=== PATIENT | female | born 1975 | race Caucasian/White ===

== ENCOUNTER → 2018-03-31 13:41 | Outpatient (REF) | payer SELFPAY | LOC: OM 13:41 | PROVIDERS: PCP Family Medicine; Visit Provider Nurse Practitioner Family | DX: Z02.83 Encounter for blood-alcohol and blood-drug test (principal) ==

== ENCOUNTER 2018-06-30 14:11 | Outpatient (CLI) | payer MEDICAID, SELFPAY ==
[2018-06-30 15:28] LABS: HCT 42.1 % (36.0-46.0); HGB 13.3 g/dL (12.0-15.5)
[2018-06-30 15:58] LABS: HCG Quant, Pregnancy < 1 mIU/mL (1-3)
== END 2018-06-30 14:31 ==
PROVIDERS: PCP Family Medicine; Visit Provider Obstetrics & Gynecology
DX: N83.292 Other ovarian cyst, left side (principal); Z01.818 Encounter for other preprocedural examination
CPT/HCPCS: 36415; 86850; 86900; 86901; 84702; 85014; 85018

== ENCOUNTER 2018-07-03 11:26 | Day surgery (SDC) | payer MEDICAID, SELFPAY ==
[2018-07-03] VITALS (8 sets, daily range): BP systolic 90–113; BP diastolic 57–75; PULSE 60–74; RESP 14–24; TEMP 36.5–37; O2SAT 94–100
[2018-07-03] MEDS: Lactated Ringers 1,000 ML 125 ML IV ×2 (12:09→14:05)
--- NOTE | 2018-07-03 12:29 | W.PM.HP.N ---
Assessment and Plan (1) Sterilization: Current visit: Yes Status: Acute (2) Sterilization: Current visit: Yes Status: Acute 42 yo left complex ovarian cyst, desires sterilization, needs Mirena IUD removed and new one inserted PlanLAparoscopic LEFT ovarian cystectomy, Left salpingectomy, Mirena iud removal and reinsertion new mIRENA iud r/b/a REVIEWED ALL QUESTIONS ASKED AND ANSWERED CONSENTS SIGNED History of Present Illness Chief Complaint: left ovarian cyst, desires sterilization, iud insertion Narrative: 42 yo hx ectopic with right salpingectomy. 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 Smoking/Tobacco Use Status: Former Tobacco Use second hand exposure: No alcohol intake: current details: occasional substance use type: does not use seatbelt use: always Surgical History Cholecystectomy , Ectopic Female Reproductive History Menstrual control method: progestin IUCD History History 4 Para 3 Hx # Term Pregnancies Multiple births Hx # Pregnancies Ectopic pregnancies AB induced Hx Number of Living Children AB spontaneous Meds Home Medications Medication Instructions Recorded Confirmed Type levonorgestrel [Mirena] 1 ea INTRAUTERINE ONCE #1 implant 07/08/14 07/03/18 History famotidine 20 mg PO BID PRN PRN 09/21/14 07/03/18 History Allergies Allergy/AdvReac Type Severity Reaction Status Date / Time acetaminophen [From Percocet] AdvReac Mild Nausea Unverified 07/03/18 11:51 oxycodone [From Percocet] AdvReac Mild Nausea Unverified 07/03/18 11:51 Exam Const General: cooperative, healthy appearing and comfortable Chest Chest: normal inspection of the chest Resp Effort & Inspection: normal respiratory effort Auscultation: clear to auscultation bilaterally Cardio Rate: regular rate Rhythm: regular rhythm Heart Sounds: S1 normal and S2 normal GI Inspection: normal to inspection Palpation: soft and no hepatosplenomegaly External Female Exam: external appearance normal and normal appearance of the urethra Speculum Exam - Vagina: normal appearance of the vagina Speculum Exam - Cervix: normal appearance of the cervix Bimanual Exam- Vagina & Uterus: normal bimanual exam Bimanual Exam- Adnexa, other: normal adnexae Results Labs Laboratory Results - last 24 hr 07/03/18 11:50 Patient ABO/Rh A Negative Last Vital Signs Temp 36.5 C 07/03/18 11:40 Pulse 66 07/03/18 11:40 Resp 16 07/03/18 11:40 BP 113/75 07/03/18 11:40 Pulse Ox 100 07/03/18 11:40 pelvic us left solid complex ovarian cyst
--- NOTE | 2018-07-03 14:20 | FALL_PTH ---
PATIENT: Valarie Mendes LOC: [facility] U#:[id number] AGE/SX: 42/F ROOM: RE07/03/[address]: Shana Baird MD : [id number] BED: DIS: 07/03/2018 SPEC #: [id number] RECD: 07/03/18 17:24 STATUS: SANCHO RE #: [id number] SHAMAR: 07/03/18 14:[address]: Shana Baird DEPT: Surgical Specimen RECD BY: Blessing Londono ENTERED: 07/03/18 17:27 SP TYPE: Fall OTHR DR: Patel Toney Tissues: 1 - FALLOPIAN TUBE (STERILIZATION) 2 - OVARY BIOPSY 3 - FOREIGN BODY Procedures: GROSS AND MICRO LEVEL 2 GROSS AND MICRO LEVEL 4 GROSS LEVEL 1 Comments: [id number]
[2018-07-03] MEDS: Bupivacaine 0.25% Pres-Free 30 ML VIAL (14:38)
--- NOTE | 2018-07-03 15:29 | W.PM.OP ---
Date of service: 07/03/18 Time of Service: 15:29 Operative Note DATE OF PROCEDURE: 07/03/18 PRE-OP DIAGNOSIS: Complex Left Ovarian cyst, desires sterilization IUD removal/reinsertion POST-OP DIAGNOSIS: same PROCEDURE: Laparoscopic left ovarian cystectomy, left salpingectomy Mirena removal/new IUD. The patient was taken to the operating room and properly identified she was then placed on the operating table in the dorsal supine position and general anesthesia was induced without difficulty. She was then placed in the dorsal lithotomy position and prepped and draped in normal sterile fashion. A formal timeout procedure was then performed confirming patient and procedure with ulcer surgical personnel present. A Branch catheter was then placed a bivalve speculum was placed in the vagina the cervix was visualized and grasped on the anterior lip with a single-tooth tenaculum. The IUD strings were grasped with a ring forcep sac and the IUD removed the uterus was then sounded to 7.5 cm and the new Mirena IUD was inserted into the uterus without difficulty and the strings were cut. The uterine manipulator was then placed in a single-tooth tenaculum removed. Hemostasis was noted. Attention was then turned to the patient's abdomen where a infraumbilical injection of quarter strength Marcaine was made 5 mm subcuticular incision was made and the Veress needle was advanced into the peritoneal cavity without difficulty and intraperitoneal location was confirmed with a drop in pressure and a fluid-filled syringe. The abdomen was then insufflated of CO2 gas and the laparoscope advanced into the peritoneal cavity and pharynx infection was instituted with the above findings. The patient was placed in Trendelenburg position to 5 mm ports were then placed in the right lower quadrant in the left lower quadrant by first injection of quarter strength Marcaine making a 5 mm subcuticular incision and advancing each port under direct visualization. The pelvis was then reinspected there was a large fluid-filled cyst on the left ovary the right ovary was normal bladder ureters appendix and liver were also normal. Attention was then turned to the salpingectomy portion of the procedure the left fallopian tube was then grasped and cauterized along the mesosalpinx and cut hemostasis was confirmed. The right fallopian tube had already been removed at the time of her prior ectopic . Attention was then turned to the cystectomy portion of the procedure the ovary was grasped and while well away from the bladder a linear incision was made in the ovarian capsule the cyst was drained of clear fluid the linear incision was extended each side of the incision was then grasped and then using the grasper with teeth the entire ovarian cyst wall was excised including approximately 2-3 mm solid component most consistent with calcified tissue. The specimens were sent to pathology for permanent evaluation this included the left ovarian cyst wall and the left fallopian tube. The pelvis was irrigated all the irrigant was removed the left ovary was reinspected and found to be hemostatic as well as the left adnexa which was hemostatic 2. Although equipment was removed from the peritoneum the abdomen was desufflated of CO2 gas the ports were removed and the skin closed with 4-0 Monocryl in a subcuticular fashion. A Branch catheter was removed as well as the uterine manipulator. Sponge lap needle and instrument count correct x2 and the patient was taken recovery room in stable condition. ANESTHESIA: GETA ESTIMATED BLOOD LOSS: 25 PATHOLOGY: other (left fallopian tube, left ovarian cyst wall, Mirena IUD) Patient was transported to: PACU Patient's condition: stable Implants: Mirena IUD
[2018-07-03] MEDS: HYDROcodone 5/Acetaminophen 325 TAB PO (17:42)
== END 2018-07-03 17:40 | disposition home or self-care (01) ==
PROVIDERS: PCP Family Medicine; Visit Provider Obstetrics & Gynecology
PROC: (CPT 58662; principal; 2018-07-03 13:00)
PROC: (CPT 58661; 2018-07-03 13:00)
PROC: (CPT 58300; 2018-07-03 13:00)
DX: D27.1 Benign neoplasm of left ovary (principal); Z30.433 Encounter for removal and reinsertion of intrauterine contraceptive device; Z90.79 Acquired absence of other genital organ(s)
CPT/HCPCS: 58300; 58301; 58661; 58662; 86850; 86900; 86901; 88300; 88305; NC; 88302; J0131; J1100; J1885; J2250; J2405; J3010

== ENCOUNTER 2018-09-01 10:07 | Emergency (ER) | payer MEDICAID, SELFPAY ==
[2018-09-01 10:16] VITALS: BP 118/68; PULSE 76; RESP 16; TEMP 37; O2SAT 98
--- NOTE | 2018-09-01 10:30 | W.ED.GENAD ---
Discharge Plan Disposition Patient Disposition: LEFT WITHOUT BEING SEEN Discharge Details Chief Complaint: Sorethroat Primary Care Provider: Patel Toney ED Provider: Shana Castillo Discharge Data Discharge Date/Time-TO BE ENTERED AT DEPARTURE: 09/01/18 11:02 HPI General Date/Time Provider Initiated Documentation: 09/01/18 10:30. HPI Narrative: Per nursing after triage, Pt here with sore throat and strep throat contacts, concern for strep throat. Pt arrived in ED during surge conditions. Rapid strep ordered prior to my seeing the Pt. Rapid strep resulted as negative. Pt apparently eloped from the emergency department after being told by nursing rapid strep negative before being seen by me. Related Data Home Medications Medication Instructions Recorded Confirmed Mirena 1 ea INTRAUTERINE ONCE #1 implant 07/08/14 09/01/18 famotidine 20 mg PO BID PRN PRN 09/21/14 09/01/18 ibuprofen 800 mg PO TID PRN #30 tab 07/03/18 09/01/18 Previous Rx's Medication Instructions Recorded ibuprofen 800 mg PO TID PRN #30 tab 07/03/18 Allergies Allergy/AdvReac Type Severity Reaction Status Date / Time acetaminophen [From Percocet] AdvReac Mild Nausea Unverified 09/01/18 10:18 oxycodone [From Percocet] AdvReac Mild Nausea Unverified 09/01/18 10:18 General Stated Complaint: Sorethroat JUSTIN: 4 PFSH Social History adopted: No caregiver/support person: No foster care: No household members: family housing: house lives independently: Yes number of children: 3 chcf: No current occupational status: employed 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 [employer] pets and animals: No leisure activities: other Hx Recent Travel: No Smoking/Tobacco Use Status: Former Tobacco Use second hand exposure: No alcohol intake: current details: occasional substance use type: does not use seatbelt use: always Female Reproductive History Menstrual control method: progestin IUCD (07/03/18) History History 4 Para Hx # Term Pregnancies 3 Multiple births Hx # Pregnancies Ectopic pregnancies AB induced Hx Number of Living Children AB spontaneous Course Vital Signs Temperature 37 C 09/01/18 10:16 Pulse 76 09/01/18 10:16 Respiratory Rate 16 09/01/18 10:16 Blood Pressure 118/68 09/01/18 10:16 Pulse Oximetry 98 09/01/18 10:16 Temperature 37 C 09/01/18 10:16 Temperature Source Skin 09/01/18 10:16 Pulse 76 09/01/18 10:16 Respiratory Rate 16 09/01/18 10:16 Respiratory Effort Non-Labored 09/01/18 10:16 Blood Pressure 118/68 09/01/18 10:16 Pulse Oximetry 98 09/01/18 10:16 Oxygen Delivery Method Room Air 09/01/18 10:16 Oxygen Flow Rate 0 09/01/18 10:16 Pain Level 8 09/01/18 10:16
--- NOTE | 2018-09-01 11:04 | NUR.NOTE ---
Nursing Note: 1102 seen walking out by Jen. Sanna Schreiber.
--- NOTE | 2018-09-02 15:41 | ED.GENADUL_ITS ---
Discharge Plan Disposition Patient Disposition: LEFT WITHOUT BEING SEEN Discharge Details Chief Complaint: Sorethroat Primary Care Provider: Patel Toney ED Provider: Shana Castillo Discharge Data Discharge Date/Time-TO BE ENTERED AT DEPARTURE: 09/01/18 11:02 HPI General Date/Time Provider Initiated Documentation: 09/01/18 10:30 . HPI Narrative: Per nursing after triage, Pt here with sore throat and strep throat contacts, concern for strep throat. Pt arrived in ED during surge conditions. Rapid strep ordered prior to my seeing the Pt. Rapid strep resulted as negative. Pt apparently eloped from the emergency department after being told by nursing rapid strep negative before being seen by me. Related Data Home Medications Medication Instructions Recorded Confirmed Mirena 1 ea INTRAUTERINE ONCE #1 implant 07/08/14 09/01/18 famotidine 20 mg PO BID PRN PRN 09/21/14 09/01/18 ibuprofen 800 mg PO TID PRN #30 tab 07/03/18 09/01/18 Previous Rx's Medication Instructions Recorded ibuprofen 800 mg PO TID PRN #30 tab 07/03/18 Allergies Allergy/AdvReac Type Severity Reaction Status Date / Time acetaminophen [From Percocet] AdvReac Mild Nausea Unverified 09/01/18 10:18 oxycodone [From Percocet] AdvReac Mild Nausea Unverified 09/01/18 10:18 General Stated Complaint: Sorethroat JUSTIN: 4 PFSH Social History adopted: No caregiver/support person: No foster care: No household members: family housing: house lives independently: Yes number of children: 3 custodial: No current occupational status: employed 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 pets and animals: No leisure activities: other Hx Recent Travel: No Smoking/Tobacco Use Status: Former Tobacco Use second hand exposure: No alcohol intake: current details: occasional substance use type: does not use seatbelt use: always Female Reproductive History Menstrual control method: progestin IUCD (07/03/18) History History 4 Para Hx # Term Pregnancies 3 Multiple births Hx # Pregnancies Ectopic pregnancies AB induced Hx Number of Living Children AB spontaneous Course Vital Signs Temperature 37 C 09/01/18 10:16 Pulse 76 09/01/18 10:16 Respiratory Rate 16 09/01/18 10:16 Blood Pressure 118/68 09/01/18 10:16 Pulse Oximetry 98 09/01/18 10:16 Temperature 37 C 09/01/18 10:16 Temperature Source Skin 09/01/18 10:16 Pulse 76 09/01/18 10:16 Respiratory Rate 16 09/01/18 10:16 Respiratory Effort Non-Labored 09/01/18 10:16 Blood Pressure 118/68 09/01/18 10:16 Pulse Oximetry 98 09/01/18 10:16 Oxygen Delivery Method Room Air 09/01/18 10:16 Oxygen Flow Rate 0 09/01/18 10:16 Pain Level 8 09/01/18 10:16
== END 2018-09-01 11:02 | disposition left before discharge ==
LOC: ER 10:58
PROVIDERS: Emergency Provider Student in an Organized Health Care Education/Training Program; PCP Family Medicine
DX: Z53.21 Procedure and treatment not carried out due to patient leaving prior to being seen by health care provider (principal)
CPT/HCPCS: 87081

== ENCOUNTER 2018-10-09 11:51 | Emergency (ER) | payer MEDICAID, SELFPAY ==
[2018-10-09 11:58] VITALS: BP 114/72; PULSE 88; RESP 16; TEMP 37; O2SAT 100
--- NOTE | 2018-10-09 11:59 | W.ED.GENAD ---
Discharge Plan Disposition Patient Disposition: HOME Condition: Stable Discharge Details Chief Complaint: RespSymp Clinical Impression: Community acquired pneumonia Primary Care Provider: Patel Toney ED Provider: Eliu Patrick Home Meds and New Rx's Prescriptions: New doxycycline hyclate 100 mg tablet 100 mg PO BID Qty: 14 RF: 0 Continued Mirena 1 EACH intrauterine device 1 ea Intrauterine ONCE Qty: 1 RF: 0 famotidine 20 MG tablet 20 mg PO BID PRN PRNRF: 0 ibuprofen 800 mg tablet 800 mg PO TID PRN (Reason: fever or pain) Qty: 30 RF: 1 Discharge Instructions Instructions: Community Acquired Pneumonia (ED) Additional Instructions: if not better in a week see your primary care provider if you feel you are worsening, having more difficulty breathing or persistent vomit return to the emergency department Medical Decision Making patient comes in with chief complaint of cough for 3 days, subjective fevers and chills. Denies travel, smoking, drug use or alcohol use, is a former smoker but quit years ago. Denies rashes or recent travel. Has left lower lobe crackles otherwise clear lungs, speaking in full setnences without distress. Does have clear rhinorrhea, normal oropharynx, no murmurs or stigmata of endocarditis. Suspect CAP given lung exam findings, given stable vitals and well appearance do not feel labs or imaging indicated. Will start abx, advised f/u with pcp and return precautions given Differential Diagnosis pna, viral illness, bronchitis HPI General Mode of arrival: ambulatory. Date/Time Provider Initiated Documentation: 10/09/18 11:54. Limitations to Documentation: no limitations. Information obtained by: patient. History of Present Illness 43 year old F presents to the emergency department with the chief complaint of cough, described as moderate, with intensity rated at 4. Patient started experiencing this day(s) (3) and it has been constant. No relieving factors improve symptom(s), No exacerbating factors reported . Patient notes fever/chills. Patient did receive the following treatments prior to arrival, none Related Data Home Medications Medication Instructions Recorded Confirmed Mirena 1 ea INTRAUTERINE ONCE #1 implant 07/08/14 10/09/18 famotidine 20 mg PO BID PRN PRN 09/21/14 10/09/18 ibuprofen 800 mg PO TID PRN #30 tab 07/03/18 10/09/18 doxycycline hyclate 100 mg PO BID #14 tab 10/09/18 Previous Rx's Medication Instructions Recorded ibuprofen 800 mg PO TID PRN #30 tab 07/03/18 doxycycline hyclate 100 mg PO BID #14 tab 10/09/18 Allergies Allergy/AdvReac Type Severity Reaction Status Date / Time acetaminophen [From Percocet] AdvReac Mild Nausea Unverified 10/09/18 12:02 oxycodone [From Percocet] AdvReac Mild Nausea Unverified 10/09/18 12:02 General JUSTIN: 4 Review of Systems Review of Systems All systems reviewed & are unremarkable except as noted in HPI and below Constitutional Denies weakness Eyes Denies loss of vision ENT Denies change in voice Cardiovascular Denies chest pain and Denies dyspnea Respiratory Denies dyspnea Gastrointestinal Denies abdominal pain, Denies nausea and Denies vomiting Genitourinary Denies dysuria Musculoskeletal Denies joint swelling Integumentary/Breasts Denies rash Neurologic Denies loss of vision and Denies weakness Endocrine Denies cold intolerance and Denies heat intolerance [facility] Medical History Migraine (Chronic) Dysplasia of cervix, low grade (BG 1) (Acute) IUD surveillance (Acute 05/10/16) Maldonado-[place] disease (Acute 02/29/16) Surgical History Cholecystectomy , Ectopic Social History adopted: No caregiver/support person: No foster care: No household members: family housing: house lives independently: Yes number of children: 3 highest education level completed: 11th grade service: No longterm: No current occupational status: employed 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 pets and animals: No leisure activities: other Hx Recent Travel: No sexually active: Yes current gender identity: female Smoking and Tabacco status: Former Tobacco Use second hand exposure: No alcohol intake: current details: occasional substance use type: does not use Seatbelt use: always Female Reproductive History Menstrual control method: progestin IUCD (07/03/18) History History 4 Para Hx # Term Pregnancies 3 Multiple births Hx # Pregnancies Ectopic pregnancies AB induced Hx Number of Living Children AB spontaneous Exam Const General: no acute distress Orientation: alert HENMT Head: normal to inspection Ears: external ears normal General nose exam: external nose normal Mouth: moist mucous membranes Eyes General: appearance normal, both eyes and all related structures Neck Neck: normal visual inspection Resp Effort & Inspection: normal respiratory effort and able to speak in complete sentences Cardio Rate: regular rate Skin General skin exam: no rashes or lesions noted Neuro General: alert and oriented x3 Extrem General: normal to inspection Psych Mental Status: mental status grossly normal
--- NOTE | 2018-10-09 12:11 | ED.GENADUL_ITS ---
Discharge Plan Disposition Patient Disposition: HOME Condition: Stable Discharge Details Chief Complaint: RespSymp Clinical Impression: Community acquired pneumonia Primary Care Provider: Patel Toney ED Provider: Eliu Patrick Home Meds and New Rx's Prescriptions: New doxycycline hyclate 100 mg tablet 100 mg PO BID Qty: 14 RF: 0 Continued Mirena 1 EACH intrauterine device 1 ea Intrauterine ONCE Qty: 1 RF: 0 famotidine 20 MG tablet 20 mg PO BID PRN PRNRF: 0 ibuprofen 800 mg tablet 800 mg PO TID PRN (Reason: fever or pain) Qty: 30 RF: 1 Discharge Instructions Instructions: Community Acquired Pneumonia (ED) Additional Instructions: if not better in a week see your primary care provider if you feel you are worsening, having more difficulty breathing or persistent vomit return to the emergency department Medical Decision Making patient comes in with chief complaint of cough for 3 days, subjective fevers and chills. Denies travel, smoking, drug use or alcohol use, is a former smoker but quit years ago. Denies rashes or recent travel. Has left lower lobe crackles otherwise clear lungs, speaking in full setnences without distress. Does have clear rhinorrhea, normal oropharynx, no murmurs or stigmata of endocarditis. Suspect CAP given lung exam findings, given stable vitals and well appearance do not feel labs or imaging indicated. Will start abx, advised f/u with pcp and return precautions given Differential Diagnosis pna, viral illness, bronchitis HPI General Mode of arrival: ambulatory . Date/Time Provider Initiated Documentation: 10/09/18 11:54 . Limitations to Documentation: no limitations . Information obtained by: patient . History of Present Illness 43 year old F presents to the emergency department with the chief complaint of cough, described as moderate, with intensity rated at 4. Patient started experiencing this day(s) (3) and it has been constant. No relieving factors improve symptom(s), No exacerbating factors reported . Patient notes fever/chills. Patient did receive the following treatments prior to arrival, none Related Data Home Medications Medication Instructions Recorded Confirmed Mirena 1 ea INTRAUTERINE ONCE #1 implant 07/08/14 10/09/18 famotidine 20 mg PO BID PRN PRN 09/21/14 10/09/18 ibuprofen 800 mg PO TID PRN #30 tab 07/03/18 10/09/18 doxycycline hyclate 100 mg PO BID #14 tab 10/09/18 Previous Rx's Medication Instructions Recorded ibuprofen 800 mg PO TID PRN #30 tab 07/03/18 doxycycline hyclate 100 mg PO BID #14 tab 10/09/18 Allergies Allergy/AdvReac Type Severity Reaction Status Date / Time acetaminophen [From Percocet] AdvReac Mild Nausea Unverified 10/09/18 12:02 oxycodone [From Percocet] AdvReac Mild Nausea Unverified 10/09/18 12:02 General JUSTIN: 4 Review of Systems Review of Systems All systems reviewed & are unremarkable except as noted in HPI and below Constitutional Denies weakness Eyes Denies loss of vision ENT Denies change in voice Cardiovascular Denies chest pain and Denies dyspnea Respiratory Denies dyspnea Gastrointestinal Denies abdominal pain, Denies nausea and Denies vomiting Genitourinary Denies dysuria Musculoskeletal Denies joint swelling Integumentary/Breasts Denies rash Neurologic Denies loss of vision and Denies weakness Endocrine Denies cold intolerance and Denies heat intolerance [facility] Medical History Migraine (Chronic) Dysplasia of cervix, low grade (BG 1) (Acute) IUD surveillance (Acute 05/10/16) Maldonado-[place] disease (Acute 02/29/16) Surgical History Cholecystectomy , Ectopic Social History adopted: No caregiver/support person: No foster care: No household members: family housing: house lives independently: Yes number of children: 3 highest education level completed: 11th grade service: No [place] [facility]: No current occupational status: employed 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 pets and animals: No leisure activities: other Hx Recent Travel: No sexually active: Yes current gender identity: female Smoking and Tabacco status: Former Tobacco Use second hand exposure: No alcohol intake: current details: occasional substance use type: does not use Seatbelt use: always Female Reproductive History Menstrual control method: progestin IUCD (07/03/18) History History 4 Para Hx # Term Pregnancies 3 Multiple births Hx # Pregnancies Ectopic pregnancies AB induced Hx Number of Living Children AB spontaneous Exam Const General: no acute distress Orientation: alert HENMT Head: normal to inspection Ears: external ears normal General nose exam: external nose normal Mouth: moist mucous membranes Eyes General: appearance normal, both eyes and all related structures Neck Neck: normal visual inspection Resp Effort & Inspection: normal respiratory effort and able to speak in complete sentences Cardio Rate: regular rate Skin General skin exam: no rashes or lesions noted Neuro General: alert and oriented x3 Extrem General: normal to inspection Psych Mental Status: mental status grossly normal
== END 2018-10-09 12:14 | disposition home or self-care (01) ==
LOC: ER 12:20
PROVIDERS: Emergency Provider Emergency Medicine; PCP Family Medicine
DX: J18.9 Pneumonia, unspecified organism (principal); Z87.891 Personal history of nicotine dependence
CPT/HCPCS: 99283

== ENCOUNTER 2019-02-27 11:12 | Emergency (ER) | payer MEDICAID, SELFPAY ==
[2019-02-27 11:27] VITALS: BP 104/67; PULSE 72; RESP 16; TEMP 36.6; O2SAT 98
--- NOTE | 2019-02-27 12:03 | W.ED.GENAD ---
Discharge Plan Disposition Patient Disposition: HOME Condition: Good Discharge Details Chief Complaint: Orthopedic Clinical Impression: Bursitis, prepatellar Primary Care Provider: Patel Toney ED Provider: Corina Conde Home Meds and New Rx's Prescriptions: New ibuprofen 600 mg tablet 600 mg PO QID PRN (Reason: pain) Qty: 30 RF: 0 Continued Mirena 1 EACH intrauterine device 1 ea Intrauterine ONCE Qty: 1 RF: 0 famotidine 20 MG tablet 20 mg PO BID PRN PRNRF: 0 ranitidine HCl [Zantac 75] 75 mg Tablet 75 mg PO BID PRNRF: 0 Discharge Instructions Instructions: Knee Bursitis (ED) Additional Instructions: Encourage rest, ice, elevation. Tylenol and ibuprofen as needed for discomfort. Please avoid activities that cause increased pain. Continue with Juan wrap for pain persist. Please follow-up with primary care for reevaluation next week. If you develop fever/chills, redness of the knee, increased swelling, increased pain or the new/worsening symptoms please seek care urgently once again Stand Alone Forms: Work Release Referrals: Patel Toney [Primary Care Provider] - Discharge Data Discharge Date/Time-TO BE ENTERED AT DEPARTURE: 02/27/19 13:01 Medical Decision Making Patient 43-year-old female presenting today with chief complaint of right knee pain. Denies any trauma. States that she awoke with this discomfort yesterday. She denies any fevers or chills. Is indicating the anterior aspect as the area of maximal discomfort. Does have a small area of swelling over this consistent with prepatellar bursitis. No erythema or warmth to suggest infection. Patient is ambulating well. We discussed the pathology associated with this. Advise Juan wrap to help with compression. Encourage rest, ice, elevation. Tylenol and ibuprofen as needed for discomfort. Advise follow-up with primary care in the next 1 to 2 weeks for reevaluation if not improved. We did discuss the signs symptoms that should prompt her to seek care urgently once again, in particular symptoms of infection. All her questions and concerns were addressed and she is in agreement this plan HPI General Mode of arrival: ambulatory. Date/Time Provider Initiated Documentation: 02/27/19 12:02. Limitations to Documentation: no limitations. Information obtained by: patient and RN notes reviewed. History of Present Illness 43 year old F presents to the emergency department with the chief complaint of right knee pain, described as moderate, with intensity rated at 6. Quality is described as aching, and is localized to the right and lower extremity. Patient reports no radiation. Patient started experiencing this day(s) (1) and it has been constant. Immobilization improves symptom(s), Movement worsens symptoms . Patient notes no other symptoms.. Patient did receive the following treatments prior to arrival, none Related Data Home Medications Medication Instructions Recorded Confirmed Mirena 1 ea INTRAUTERINE ONCE #1 implant 07/08/14 02/27/19 famotidine 20 mg PO BID PRN PRN 09/21/14 02/27/19 ibuprofen 600 mg PO QID PRN #30 tab 02/27/19 ranitidine HCl [Zantac 75] 75 mg PO BID PRN 02/27/19 02/27/19 Previous Rx's Medication Instructions Recorded ibuprofen 600 mg PO QID PRN #30 tab 02/27/19 Allergies Allergy/AdvReac Type Severity Reaction Status Date / Time oxycodone [From Percocet] AdvReac Mild Nausea Unverified 10/09/18 12:02 General Stated Complaint: Orthopedic JUSTIN: 4 Review of Systems Constitutional Reports as per HPI, Denies chills, Denies fever(s), Denies headache(s) and Denies weakness ENT Denies headache(s) Cardiovascular Reports as per HPI Respiratory Reports as per HPI and Denies cough Musculoskeletal Reports as per HPI and Denies tingling Integumentary/Breasts Reports as per HPI, Denies rash and Denies wounds Neurologic Reports as per HPI, Denies headache(s), Denies tingling, Denies paresthesias and Denies weakness [facility] Medical History Migraine (Chronic) Dysplasia of cervix, low grade (BG 1) (Acute) IUD surveillance (Acute 05/10/16) 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) Surgical History Cholecystectomy , Ectopic Social History Smoking/Tobacco Use Status: Former Tobacco Use Second Hand Exposure: No Alcohol Intake: current Alcohol Intake frequency: holidays/special occasions only Details: occasional Drug use: Never Substance use type: does not use Adopted: No Caregiver/Support person: No Foster care: No Household members: family Housing: house Number of Children: 3 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 Pets and animals: No Sexually active: Yes Current gender identity: female Seatbelt use: always Do you feel safe at home: Yes Do you feel safe in your relationship?: Yes Female Reproductive History Menstrual control method: progestin IUCD (07/03/18) History History 4 Para Hx # Term Pregnancies 3 Multiple births Hx # Pregnancies Ectopic pregnancies AB induced Hx Number of Living Children AB spontaneous Exam Const General: cooperative, healthy appearing, comfortable, no acute distress, well developed and well groomed Nutritional Appearance: average body habitus and well nourished Orientation: alert and awake Resp Effort & Inspection: normal respiratory effort, able to speak in complete sentences and no respiratory distress Cardio Rate: regular rate Rhythm: regular rhythm Skin General skin exam: no rashes or lesions noted Lesions: no lesions Rashes: no rashes Trauma: no lacerations or abrasions Neuro General: alert and awake Cognition: normal cognition Speech: speech normal Gait: normal gait Motor: muscle tone normal throughout Sensory Exam: no sensory deficits noted Extrem Right lower extremity: normal to inspection, full ROM, normal capillary refill, no joint enlargement, hip/thigh Details: normal to inspection and normal ROM; no tenderness and no swelling, knee Details: normal to inspection, tenderness Location: of the pre-patellar area, normal ROM and knee ligament exam normal Details: anterior drawer test normal, posterior drawer test normal, valgus stress test normal and varus stress test normal; no pain with axial loading; no swelling, lower leg Details: normal to inspection and no edema; no tenderness and no palpable cords, ankle Details: normal to inspection; no tenderness and no swelling and foot Details: normal capillary refill Psych Appearance: grossly normal and well kempt Mental Status: mental status grossly normal Speech and Movement: speech and movement normal Course Vital Signs Temperature 36.6 C 02/27/19 11:27 Pulse 72 02/27/19 11:27 Respiratory Rate 16 02/27/19 11:27 Blood Pressure 104/67 02/27/19 11:27 Pulse Oximetry 98 02/27/19 11:27 Temperature 36.6 C 02/27/19 11:27 Temperature Source Temporal Artery Scan 02/27/19 11:27 Pulse 72 02/27/19 11:27 Respiratory Rate 16 02/27/19 11:27 Respiratory Effort Non-Labored 02/27/19 11:31 Blood Pressure 104/67 02/27/19 11:27 Blood Pressure Position Sitting 02/27/19 11:27 Pulse Oximetry 98 02/27/19 11:27 Oxygen Delivery Method Room Air 02/27/19 11:27 Oxygen Flow Rate 0 02/27/19 11:27 Pain Level 6 02/27/19 11:27
--- NOTE | 2019-02-27 12:42 | ED.GENADUL_ITS ---
Discharge Plan Disposition Patient Disposition: HOME Condition: Good Discharge Details Chief Complaint: Orthopedic Clinical Impression: Bursitis, prepatellar Primary Care Provider: Patel Toney ED Provider: Corina Conde Home Meds and New Rx's Prescriptions: New ibuprofen 600 mg tablet 600 mg PO QID PRN (Reason: pain) Qty: 30 RF: 0 Continued Mirena 1 EACH intrauterine device 1 ea Intrauterine ONCE Qty: 1 RF: 0 famotidine 20 MG tablet 20 mg PO BID PRN PRNRF: 0 ranitidine HCl [Zantac 75] 75 mg Tablet 75 mg PO BID PRNRF: 0 Discharge Instructions Instructions: Knee Bursitis (ED) Additional Instructions: Encourage rest, ice, elevation. Tylenol and ibuprofen as needed for discomfort. Please avoid activities that cause increased pain. Continue with Juan wrap for pain persist. Please follow-up with primary care for reevaluation next week. If you develop fever/chills, redness of the knee, increased swelling, increased pain or the new/worsening symptoms please seek care urgently once again Stand Alone Forms: Work Release Referrals: Patel Toney [Primary Care Provider] - Discharge Data Discharge Date/Time-TO BE ENTERED AT DEPARTURE: 02/27/19 13:01 Medical Decision Making Patient 43-year-old female presenting today with chief complaint of right knee pain. Denies any trauma. States that she awoke with this discomfort yesterday. She denies any fevers or chills. Is indicating the anterior aspect as the area of maximal discomfort. Does have a small area of swelling over this consistent with prepatellar bursitis. No erythema or warmth to suggest infection. Patient is ambulating well. We discussed the pathology associated with this. Advise Juan wrap to help with compression. Encourage rest, ice, elevation. Tylenol and ibuprofen as needed for discomfort. Advise follow-up with primary care in the next 1 to 2 weeks for reevaluation if not improved. We did discuss the signs symptoms that should prompt her to seek care urgently once again, in particular symptoms of infection. All her questions and concerns were addressed and she is in agreement this plan HPI General Mode of arrival: ambulatory . Date/Time Provider Initiated Documentation: 02/27/19 12:02 . Limitations to Documentation: no limitations . Information obtained by: patient and RN notes reviewed . History of Present Illness 43 year old F presents to the emergency department with the chief complaint of right knee pain, described as moderate, with intensity rated at 6. Quality is described as aching, and is localized to the right and lower extremity. Patient reports no radiation. Patient started experiencing this day(s) (1) and it has been constant. Immobilization improves symptom(s), Movement worsens symptoms . Patient notes no other symptoms.. Patient did receive the following treatments prior to arrival, none Related Data Home Medications Medication Instructions Recorded Confirmed Mirena 1 ea INTRAUTERINE ONCE #1 implant 07/08/14 02/27/19 famotidine 20 mg PO BID PRN PRN 09/21/14 02/27/19 ibuprofen 600 mg PO QID PRN #30 tab 02/27/19 ranitidine HCl [Zantac 75] 75 mg PO BID PRN 02/27/19 02/27/19 Previous Rx's Medication Instructions Recorded ibuprofen 600 mg PO QID PRN #30 tab 02/27/19 Allergies Allergy/AdvReac Type Severity Reaction Status Date / Time oxycodone [From Percocet] AdvReac Mild Nausea Unverified 10/09/18 12:02 General Stated Complaint: Orthopedic JUSTIN: 4 Review of Systems Constitutional Reports as per HPI, Denies chills, Denies fever(s), Denies headache(s) and Denies weakness ENT Denies headache(s) Cardiovascular Reports as per HPI Respiratory Reports as per HPI and Denies cough Musculoskeletal Reports as per HPI and Denies tingling Integumentary/Breasts Reports as per HPI, Denies rash and Denies wounds Neurologic Reports as per HPI, Denies headache(s), Denies tingling, Denies paresthesias and Denies weakness [facility] Medical History Migraine (Chronic) Dysplasia of cervix, low grade (BG 1) (Acute) IUD surveillance (Acute 05/10/16) 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) Surgical History Cholecystectomy , Ectopic Social History Smoking/Tobacco Use Status: Former Tobacco Use Second Hand Exposure: No Alcohol Intake: current Alcohol Intake frequency: holidays/special occasions only Details: occasional Drug use: Never Substance use type: does not use Adopted: No Caregiver/Support person: No Foster care: No Household members: family Housing: house Number of Children: 3 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 Pets and animals: No Sexually active: Yes Current gender identity: female Seatbelt use: always Do you feel safe at home: Yes Do you feel safe in your relationship?: Yes Female Reproductive History Menstrual control method: progestin IUCD (07/03/18) History History 4 Para Hx # Term Pregnancies 3 Multiple births Hx # Pregnancies Ectopic pregnancies AB induced Hx Number of Living Children AB spontaneous Exam Const General: cooperative, healthy appearing, comfortable, no acute distress, well developed and well groomed Nutritional Appearance: average body habitus and well nourished Orientation: alert and awake Resp Effort & Inspection: normal respiratory effort, able to speak in complete sentences and no respiratory distress Cardio Rate: regular rate Rhythm: regular rhythm Skin General skin exam: no rashes or lesions noted Lesions: no lesions Rashes: no rashes Trauma: no lacerations or abrasions Neuro General: alert and awake Cognition: normal cognition Speech: speech normal Gait: normal gait Motor: muscle tone normal throughout Sensory Exam: no sensory deficits noted Extrem Right lower extremity: normal to inspection, full ROM, normal capillary refill, no joint enlargement, hip/thigh Details: normal to inspection and normal ROM; no tenderness and no swelling, knee Details: normal to inspection, tenderness Location: of the pre-patellar area, normal ROM and knee ligament exam normal Details: anterior drawer test normal, posterior drawer test normal, valgus stress test normal and varus stress test normal; no pain with axial loading; no swelling, lower leg Details: normal to inspection and no edema; no tenderness and no palpable cords, ankle Details: normal to inspection; no tenderness and no swelling and foot Details: normal capillary refill Psych Appearance: grossly normal and well kempt Mental Status: mental status grossly normal Speech and Movement: speech and movement normal Course Vital Signs Temperature 36.6 C 02/27/19 11:27 Pulse 72 02/27/19 11:27 Respiratory Rate 16 02/27/19 11:27 Blood Pressure 104/67 02/27/19 11:27 Pulse Oximetry 98 02/27/19 11:27 Temperature 36.6 C 02/27/19 11:27 Temperature Source Temporal Artery Scan 02/27/19 11:27 Pulse 72 02/27/19 11:27 Respiratory Rate 16 02/27/19 11:27 Respiratory Effort Non-Labored 02/27/19 11:31 Blood Pressure 104/67 02/27/19 11:27 Blood Pressure Position Sitting 02/27/19 11:27 Pulse Oximetry 98 02/27/19 11:27 Oxygen Delivery Method Room Air 02/27/19 11:27 Oxygen Flow Rate 0 02/27/19 11:27 Pain Level 6 02/27/19 11:27
== END 2019-02-27 13:01 | disposition home or self-care (01) ==
PROVIDERS: Emergency Provider Physician Assistant; PCP Family Medicine
DX: M70.41 Prepatellar bursitis, right knee (principal)
CPT/HCPCS: 99282

== ENCOUNTER 2019-05-13 12:57 | Emergency (ER) | payer MEDICAID, SELFPAY ==
[2019-05-13 13:07] VITALS: BP 116/82; PULSE 74; RESP 20; TEMP 36.5; O2SAT 98
--- NOTE | 2019-05-13 13:23 | ED.GENADUL_ITS ---
Discharge Plan Disposition Patient Disposition: HOME Condition: Good Discharge Details Chief Complaint: RespSymp Clinical Impression: Bronchitis Primary Care Provider: Patel Toney ED Provider: Evan Engle Home Meds and New Rx's Prescriptions: New loratadine 10 mg capsule 10 mg PO DAILY 5 Days Qty: 5 RF: 0 No Action Mirena 1 EACH intrauterine device 1 ea Intrauterine ONCE Qty: 1 RF: 0 famotidine 20 MG tablet 20 mg PO BID PRN PRNRF: 0 ranitidine HCl [Zantac 75] 75 mg Tablet 75 mg PO BID PRNRF: 0 Discharge Instructions Instructions: Acute Bronchitis (ED) Additional Instructions: At this time it appears that you have bronchitis. You do not show any signs or symptoms concerning for pneumonia at this time however if your symptoms do not improve over the next week pneumonia could develop. Please take your inhaler as directed. Please take the loratadine as directed on the prescription. If you notice any worsening of your symptoms, or any new symptoms such as vomiting, diarrhea, fever, chills, shortness of breath, chest pain, numbness, weakness, or fainting , please return immediately to the emergency department for reevaluation. Please follow up with your primary care provider as soon as possible for reassessment and reevaluation. As always, it was a pleasure participating in your medical care today. Referrals: Patel Toney [Primary Care Provider] - Medical Decision Making This is a 43-year-old female with a past medical history of mild reactive airway disease for which she occasionally takes albuterol, presents today for evaluation of cough chest congestion. Patient did have a mild sore throat 2 days ago, however this is completely resolved. No red flags of difficulty swallowing or stiff neck. The symptoms have now developed into mild cough, nonproductive. Physical exam demonstrates unremarkable labs, normal lung sounds, no clinical evidence of significant pneumonia. At this time signs and symptoms appear consistent with mild bronchitis and clinically inconsistent with significant pneumonia. Do not feel that antibiotics are clinically indicated at this time. Due to her mild congestion we will give loratadine, give albuterol and a spacer, and recommend close follow-up with her PCP. I have extensively reviewed the treatment plan and discharge instructions with the patient. I have addressed all patient concerns at this time. The patient was made aware of what symptoms to monitor for that would warrant a return to the emergency department. Discussed the plan with the patient, they demonstrate verbal understanding and agreement with our assessment and plan at this time. HPI General Date/Time Provider Initiated Documentation: 05/13/19 13:11 . 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 Patient states that 2 to 3 days ago she developed mild sore throat with associated congestion. This is improved on its own, she no longer has a sore throat however it did develop into a mild cough. She denies any significant productivity with the cough. She denies any fever or chills. She denies any hemoptysis. Denies PE risk factors such as recent long car rides, immobilization, recent surgery, prior history of DVT or PE, family history of PE or DVT, morbid obesity,smoking, hemoptysis, history of cancer. She has no other complaints at this time. She denies any chest pain, pleuritic chest pain. She does admit to mild congestion in her chest. She has no other complaints at this time. No other modifying factors. Related Data Home Medications Medication Instructions Recorded Confirmed Mirena 1 ea INTRAUTERINE ONCE #1 implant 07/08/14 05/13/19 famotidine 20 mg PO BID PRN PRN 09/21/14 05/13/19 ranitidine HCl [Zantac 75] 75 mg PO BID PRN 02/27/19 05/13/19 loratadine 10 mg PO DAILY 5 Days #5 cap 05/13/19 Previous Rx's Medication Instructions Recorded loratadine 10 mg PO DAILY 5 Days #5 cap 05/13/19 Allergies Allergy/AdvReac Type Severity Reaction Status Date / Time oxycodone [From Percocet] AdvReac Mild Nausea Unverified 05/13/19 13:09 General Stated Complaint: RespSymp JUSTIN: 4 Review of Systems Review of Systems ROS Unobtainable: All systems reviewed & are unremarkable except as noted in HPI and below PFSH Social History Smoking/Tobacco Use Status: Former Tobacco Use Second Hand Exposure: No Alcohol Intake: current Alcohol Intake frequency: holidays/special occasions only Details: occasional Drug use: Never Substance use type: does not use Adopted: No Caregiver/Support person: No Foster care: No Household members: family Housing: house Number of Children: 3 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 3.ENT: Atraumatic external nose and ears. Moist MM. Neck: Symmetric, trachea midline, No thyromegaly. No significant erythema in the posterior oropharynx. No tonsillar exudates. Patient demonstrates good movement of cervical neck. There is no nuchal rigidity, no nuchal tenderness. Patient is able to flex the neck without any difficulty or significant pain. Negative Kernig's and Brudzinski sign. 4.CVS: +S1/S2, No murmurs or gallops. Peripheral pulses 2+ and equal in all extremities. Brisk capillary refill in all extremities. 5.RESP: Unlabored respiratory effort. Clear to auscultation bilaterally. No wheezes rales or rhonchi 6.GI: Soft, Nontender/Nondistended, No hepatosplenomegaly. No guarding or rebound. 7.MSK: Normocephalic/Atraumatic, Extremities w/o deformity or ttp No cyanosis or clubbing, Normal movement of all extremities 8.Skin: Warm, Dry. No rashes or lesions. 9.Neuro: ka[place] kura kaupapa maori II-XII grossly intact. Sensation grossly intact, no focal galo rologic deficits. 10.Psych: (AAO) x3. Appropriate mood and affect Course Vital Signs Vital signs: Vital Signs Temperature 36.5 C 05/13/19 13:07 Pulse 74 05/13/19 13:07 Respiratory Rate 20 05/13/19 13:07 Blood Pressure 116/82 05/13/19 13:07 Pulse Oximetry 98 05/13/19 13:07 Temperature 36.5 C 05/13/19 13:07 Temperature Source Temporal Artery Scan 05/13/19 13:07 Pulse 74 05/13/19 13:07 Respiratory Rate 20 05/13/19 13:07 Blood Pressure 116/82 05/13/19 13:07 Blood Pressure Position Sitting 05/13/19 13:07 Pulse Oximetry 98 05/13/19 13:07 Oxygen Delivery Method Room Air 05/13/19 13:07 Oxygen Flow Rate 0 05/13/19 13:07 Pain Level 8 05/13/19 13:07
[2019-05-13] MEDS: Inhaler, Assist Device 1 EACH MC (13:40)
[2019-05-13] MEDS: Albuterol HFA 8 GM 60 PUFF INH IH (13:40)
== END 2019-05-13 13:40 | disposition home or self-care (01) ==
LOC: ER 13:41
PROVIDERS: Emergency Provider Student in an Organized Health Care Education/Training Program; PCP Family Medicine
DX: J20.9 Acute bronchitis, unspecified (principal)
CPT/HCPCS: 99283

== ENCOUNTER 2019-10-30 06:26 | Emergency (ER) | payer MEDICAID, SELFPAY ==
[2019-10-30 06:31] VITALS: BP 124/79; PULSE 88; RESP 16; TEMP 36.4; O2SAT 97
--- NOTE | 2019-10-30 06:31 | W.ED.GENAD ---
Discharge Plan Disposition Patient Disposition: HOME Condition: Good Discharge Details Chief Complaint: RespSymp Clinical Impression: RAD (reactive airway disease), Viral URI with cough Primary Care Provider: Patel Toney ED Provider: Ángel Phillips Home Meds and New Rx's Prescriptions: New albuterol sulfate 90 mcg/actuation HFA aerosol inhaler 2 puff IH .q4-6H PRN (Reason: shortness of breath or wheezing) Qty: 8.5 RF: 0 Continued Mirena 1 EACH intrauterine device 1 ea Intrauterine ONCE Qty: 1 RF: 0 famotidine 20 MG tablet 20 mg PO BID PRN PRNRF: 0 Discharge Instructions Instructions: Upper Respiratory Infection (ED), Reactive Airways Disease (ED), How to Use a Metered-Dose Inhaler and a Spacer (ED) Additional Instructions: Rest, stay hydrated, use ibuprofen or acetaminophen for discomfort and fever for your URI. Use the inhaler with spacer for shortness of breath or wheezing. Follow-up with primary care late next week if not doing better. Return to ED for mental status changes, increasing shortness of breath, chest pain, abdominal pain, vomiting. Referrals: Patel Toney [Primary Care Provider] - Medical Decision Making Patient presenting with feeling of shortness of breath in the setting of URI. She is afebrile with normal saturations. Her lungs are little diminished throughout but I have no focal findings. She does not appear to be in distress nor does she appear toxic. No known exposure to coronavirus. No travel outside of this area. We will give a DuoNeb and reevaluate. Patient feels much better after the DuoNeb. Lungs with much better air exchange and no focal findings. Will discharge with inhaler/spacer for use every 4-6 hours as needed while ill. Rest and stay hydrated. Follow-up with primary care late next week if not better. Return to ED for mental status changes, increasing shortness of breath, chest pain, vomiting, other concerns or problems. HPI General Mode of arrival: ambulatory. Date/Time Provider Initiated Documentation: 10/30/19 06:31. Limitations to Documentation: no limitations. Information obtained by: patient and RN notes reviewed. HPI Narrative: Patient presents to ED with complaint of feeling short of breath in relation to URI that she is having with cough and congestion. She had a sore throat yesterday but not currently. She has no fever, headache, body aches. She has no chest pain. She is a former smoker. History of requiring inhalers with previous viral URIs. She has had no travel outside of this area and no known exposure to coronavirus. She has inhalers at home but cannot find them. Related Data Home Medications Medication Instructions Recorded Confirmed Mirena 1 ea INTRAUTERINE ONCE #1 implant 07/08/14 10/30/19 famotidine 20 mg PO BID PRN PRN 09/21/14 10/30/19 albuterol sulfate 2 puff IH .q4-6H PRN #8.5 gm 10/30/19 Previous Rx's Medication Instructions Recorded albuterol sulfate 2 puff IH .q4-6H PRN #8.5 gm 10/30/19 Allergies Allergy/AdvReac Type Severity Reaction Status Date / Time oxycodone [From Percocet] AdvReac Mild Nausea Unverified 10/30/19 06:34 General JUSTIN: 4 Review of Systems Narrative: As documented in HPI otherwise negative as below. 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 (Acute 02/29/16) IUD surveillance (Acute 05/10/16) Migraine (Chronic) Surgical History Cholecystectomy , Ectopic 2007 R Salpingectomy Social History Smoking/Tobacco Use Status: Former Tobacco Use Second Hand Exposure: No Alcohol Intake: current Alcohol Intake frequency: holidays/special occasions only Details: occasional Drug use: Never Substance use type: does not use Adopted: No Caregiver/Support person: No Foster care: No Household members: family Housing: house Number of Children: 3 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 Const: WDWN female in NAD. HEENT: NC/AT. Normal facial exam. Normal TMs bilaterally. Minimal erythema of the posterior oropharynx. No exudate, edema, ulcers. Eyes: Normal conjunctiva and sclera. Neck: Supple. Trachea midline. Lungs: Normal respiratory effort. Lungs are a little diminished but overall clear. Cor: RRR without murmur/gallop. Neuro: A+O x 3. Normal speech, mentation, gait. Cranial nerves II - XII grossly intact. No gross motor or sensory deficit.
[2019-10-30 06:50] VITALS: RESP 19
[2019-10-30] MEDS: Albuterol/Ipratropium 3 ML UPD VIAL UPD (06:50)
[2019-10-30 07:09] VITALS: PULSE 92; RESP 1; RESP 18; O2SAT 98
[2019-10-30] MEDS: Inhaler, Assist Device 1 EACH MC (07:22)
[2019-10-30] MEDS: Albuterol HFA 8 GM 60 PUFF INH IH (07:22)
== END 2019-10-30 07:24 | disposition home or self-care (01) ==
PROVIDERS: Emergency Provider Emergency Medicine; PCP Family Medicine
DX: J45.909 Unspecified asthma, uncomplicated (principal); J06.9 Acute upper respiratory infection, unspecified; Z87.891 Personal history of nicotine dependence
CPT/HCPCS: 94640; 99283; J7620

== ENCOUNTER 2020-08-29 14:01 | Outpatient (REF) | payer MEDICAID, SELFPAY ==
[2020-08-30 21:26] LABS: COVID-19 RT-PCR Result NEGATIVE (Negative)
== END 2020-08-29 14:21 ==
LOC: NCHCN 14:01
PROVIDERS: PCP Family Medicine; Visit Provider Nurse Practitioner Family
DX: Z20.828 Contact with and (suspected) exposure to other viral communicable diseases (principal)
CPT/HCPCS: U0003

== ENCOUNTER 2021-02-23 04:12 | Outpatient (CLI) | payer MEDICAID, SELFPAY ==
[2021-03-01 13:15] LABS: TB Interpretation Negative (Negative); TB2 Ag minus Nil 0.02 IU/mL
== END 2021-02-23 04:13 | disposition home or self-care (01) ==
LOC: LBO 04:12
PROVIDERS: PCP Family Medicine; Visit Provider Nurse Practitioner Family
DX: Z11.1 Encounter for screening for respiratory tuberculosis (principal)
CPT/HCPCS: 86480

== ENCOUNTER 2021-04-28 03:33 | Outpatient (CLI) | payer MEDICAID, SELFPAY ==
[2021-04-28 11:27] LABS: Source Nasal/Nares
[2021-04-28 14:00] LABS: COVID-19 PCR Negative (Negative)
== END 2021-04-28 03:34 | disposition home or self-care (01) ==
LOC: LBO 03:33
PROVIDERS: PCP Family Medicine; Visit Provider Surgery
DX: Z20.822 Contact with and (suspected) exposure to COVID-19 (principal); Z01.818 Encounter for other preprocedural examination
CPT/HCPCS: 87635

== ENCOUNTER 2021-04-28 04:40 | Outpatient (CLI) | payer MEDICAID, SELFPAY ==
--- NOTE | 2021-04-28 06:45 | DI.US_ITS ---
Exam(s) US AXILLA RT EXAM: US AXILLA RT CLINICAL HISTORY: lipoma vs excessory breast tissue,PANCHAL RHINA DISEASE, MASS RT AXILLA, TECHNIQUE: Ultrasound performed using standard protocol. COMPARISON: US ABD WALL SOFT TISSUE MASS US from 11/26/2017 FINDINGS: Soft tissue ultrasound was performed to evaluate questionable palpable axillary abnormality. No disc rete mass identified. No cyst or adenopathy. IMPRESSION: No specific findings in the region of the palpable abnormality of the axilla. If there is a clinical suspicion of a mass, additional evaluation CT or MR may be considered. DATA REPOSITORY:
== END 2021-04-28 05:00 ==
PROVIDERS: PCP Family Medicine; Visit Provider Surgery
DX: L75 Apocrine sweat disorders (principal); R22.31 Localized swelling, mass and lump, right upper limb
CPT/HCPCS: 76642

== ENCOUNTER 2021-05-02 10:56 | Day surgery (SDC) | payer MEDICAID, SELFPAY ==
[2021-05-02] VITALS (8 sets, daily range): BP systolic 98–118; BP diastolic 45–78; PULSE 62–72; RESP 14–18; TEMP 36.2–36.5; O2SAT 98–100; BMI 30.6
[2021-05-02] MEDS: Lactated Ringers 1,000 ML 80 ML IV (11:45)
[2021-05-02] MEDS: Acetaminophen 500 MG TAB 1000 MG PO (11:46)
[2021-05-02] MEDS: Gabapentin 300 MG CAP PO (11:46)
--- NOTE | 2021-05-02 12:27 | ANES.PREOP_ITS ---
General Info Date of Service Date Performed: 05/02/21 Height: 5 ft 1 in Weight: 73.5 kg Body Mass Index (BMI): 30.6 Surgical Procedure: Operation Date: 05/02/21 12:10 Proposed Procedures Side Surgeon s Excision Lipoma Right Becca Frey DO p Axillary Node/Lumpectomy Right Becca Frey DO Meds Allergies and Home Medications Allergies Allergy/AdvReac Type Severity Reaction Status Date / Time oxycodone [From Percocet] AdvReac Mild Nausea Unverified 04/28/21 11:05 Home Medication Medication Instructions Recorded Mirena 1 ea INTRAUTERINE ONCE #1 implant 07/08/14 famotidine 20 mg PO BID PRN 09/21/14 albuterol sulfate 2 puff IH .q4-6H PRN #8.5 gm 10/30/19 vitamin E mixed 400 unit tablet 400 unit PO DAILY 04/13/21 Current Visit Medications: Current Medications Generic Name Dose Route Start Last Admin Trade Name Freq PRN Reason Stop Dose Admin Acetaminophen 1,000 mg 05/02/21 06:00 05/02/21 11:46 Acetaminophen 500 Mg Tab PO 05/28/21 23:59 1,000 mg PREOP LEELEE Administration Gabapentin 300 mg 05/02/21 06:00 05/02/21 11:46 Gabapentin 300 Mg Cap PO 05/28/21 23:59 300 mg PREOP LEELEE Administration Ringer's Solution 1,000 mls @ 80 mls/hr 05/02/21 06:00 05/02/21 11:45 IV 05/28/21 23:59 80 mls/hr INFUSION LEELEE Administration Cefazolin Sodium/Dextrose 1 gm in 50 mls @ 100 mls/hr 05/02/21 06:00 Ancef Duplex IVPB 05/02/21 23:59 PREOP LEELEE IV Miscellaneous Supplies 1 each 05/02/21 06:00 Iv Access IV 05/28/21 23:59 DIRECTED LEELEE Sodium Chloride 0 ml 05/02/21 06:00 Normal Saline Flush 10 Ml Syr IV 05/28/21 23:59 PRN PRN Sodium Chloride 0 ml 05/02/21 06:00 Normal Saline 10 Ml Vial IJ 05/28/21 23:59 DIRECTED PRN Sterile Water 0 ml 05/02/21 06:00 Water,Injection,Sterile 10 Ml Vial IJ 05/28/21 23:59 DIRECTED PRN PFSH Active Problems Active Problems: Problem Status Onset Code Mass of right axilla R22.31 Lipoma D17.9 Migraine G43.909 Dysplasia of cervix, low grade (BG 1) N87.0 IUD surveillance 05/10/16 Z30.431 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 denies this IUD surveillance (05/10/16) Migraine Surgical History Surgical History Cholecystectomy , Ectopic 2007 R Salpingectomy Tobacco Smoking/Tobacco Use Status: Former Tobacco Use Second hand exposure: No Alcohol Alcohol Intake: current Alcohol intake frequency: holidays/special occasions only Alcohol type: beer and hard liquor Details: occasional Substance Use Substance use: Never Substance use type: does not use Prental History History 4 Para Hx # Term Pregnancies 3 Multiple births Hx # Pregnancies Ectopic pregnancies AB induced Hx Number of Living Children AB spontaneous Vital Signs and Lab Results Vital Signs Most Recent Vital Signs in EMR: Most Recent Vital Signs Temp Pulse Resp BP Pulse Ox 36.4 C L 66 16 109/68 100 05/02/21 11:21 05/02/21 11:21 05/02/21 11:21 05/02/21 11:21 05/02/21 11:21 Lab Results Blood Type / Crossmatch: No Data to Display Complete Blood Count: No Data to Display Complete Metabolic Panel: No Data to Display Liver Function Panel: No Data to Display Coagulation Panel: No Data to Display Cardiac Panel: No Data to Display Arterial Blood Gas: No Data to Display Venous Blood Gas: No Data to Display Pancreas Panel: No Data to Display Thyroid Panel: No Data to Display Infectious Disease: Coronavirus (COVID-19)(PCR) Negative (Negative) 04/28/21 09:06 04/28/21 Coronavirus 2019 Source Nasal/Nares 04/28/21 09:06 04/28/21 Blood Cultures: No Data to Display Toxicology Panel: No Data to Display Panel: No Data to Display Anesthesia Assessment and Plan Anesthesia History Personal History: No History of Anesthesia Complications Family History: No Family History of Anesthesia Complications Exercise Tolerance Exercise Tolerance: Metabolic Equivalents>4 Pertinent Negatives Pertinent Negatives: No Symptoms of GERD and No Major Cardiovascular Symptoms or Complaints Cardiac & Pulmonary Exam Cardiac Exam: Normal S1/S2 Heart Sounds Pulmonary Exam: Clear Bilateral Breath Sounds Airway Exam Known Difficult Airway: No Mallampati Class: 1 Mouth Opening: Normal (> 3cm) Thyromental Distance: Greater than 3 cm Neck Range of Motion: Full ROM Neck Circumference: Normal Teeth Condition: Normal Dentition ASA Classification ASA Score: ASA 2 Emergency Case?: No NPO Status NPO Status: NPO Clears >2 hours, Solids >8 hours Status Status: Negative HCG Anesthesia Plan Resuscitation Status: Full Code Anesthesia Technique: General Anesthesia Airway Planned: LMA Monitors Used: Standard Monitors
[2021-05-02] MEDS: ceFAZolin 1 GM/50 ML BAG IVPB (13:24)
--- NOTE | 2021-05-02 13:38 | SKI_PTH ---
PATIENT: Valarie Mendes LOC: [facility] U#:[id number] AGE/SX: 45/F ROOM: RE05/02/[address]: Becca Frey : 1975 BED: DIS: 05/02/2021 SPEC #: [id number] RECD: 05/02/21 15:51 STATUS: SANCHO Janine #: [id number] SHAMAR: 05/02/21 13:[address]: Becca Frey DEPT: Surgical Specimen RECD BY: Ruth Ann Ospina ENTERED: 05/02/21 15:52 SP TYPE: CARLOS SANDERS DR: Patel Toney Tissues: 1 - SKIN CYST/TAG/DEBRIDEMENT 2 - SOFT TISSUE MISC (INC. LIPOMA) Procedures: GROSS AND MICRO LEVEL 3 Comments: [id number]
[2021-05-02] MEDS: Lidocaine 1% Multi-Dose 50 ML VIAL (13:49)
[2021-05-02] MEDS: Bupivacaine LIPOSOME/PF 133 MG/10 ML VIAL IJ (13:49)
[2021-05-02] MEDS: Bupivacaine 0.25% Pres-Free 30 ML VIAL (13:49)
--- NOTE | 2021-05-02 15:09 | W.PM.DSUDISC ---
Discharge Plan Disposition Patient Disposition: HOME Condition: Good Discharge Details Reason For Visit: conrad cyst x2 removal & lipoma Attending Provider: Becca Frey Primary Care Provider: Patel Toney Home Meds and New Rx's Prescriptions: No Action vitamin E mixed 400 unit tablet 400 unit PO DAILY RF: 0 Mirena 1 EACH intrauterine device 1 ea Intrauterine ONCE Qty: 1 RF: 0 famotidine 20 MG tablet 20 mg PO BID PRNRF: 0 albuterol sulfate 90 mcg/actuation HFA aerosol inhaler 2 puff IH .q4-6H PRN (Reason: shortness of breath or wheezing) Qty: 8.5 RF: 0 Discharge Instructions Additional Instructions: ? MEDICATIONS: Alternate Tylenol 1000mg by mouth every 8 hours and Ibuprofen 600mg every 6 hours. Make sure you take ibuprofen with food and not on an empty stomach. Take the Tylenol and ibuprofen continuously for the first 72hrs- not just when you have pain. Use the tramadol for breakthrough pain. Use ICE! Twenty minutes on, and then off, continuously for the first 72hours. If you are taking narcotic pain medication, follow the instructions on the label and do not drive. Pain medications can make you very constipated. Make sure you are moving your bowels daily. If not, take Miralax, milk of magnesia or magnesium citrate. - Anesthesia makes you very constipated. Take a dose of milk of magnesia the morning after surgery. ? REPORT: Unusual swelling, severe pain, unresolved nausea, signs of infection, or difficulty in urination to your surgeon. ?Caring for Your Incision Home care ? Always wash your hands before touching your incision. ? Keep the incision clean, dry, and out of water, keep the incision out of water. ? Do not to pick at the scabs. Scabs help protect the wound. ? You can take a shower in 24 hours and wash the incision with soap and water. Pat dry/don?t scrub. It?s OK to wash around the incision. But don?t spray water directly on it. ? Pat stitches dry if they get wet. Don't rub. ? Check the incision site daily for pain, redness, drainage, swelling, or separation of the incision edges. ? Make sure any clothing that touches the incision is loose-fitting. This will prevent rubbing. If the incision is on the head, keep your child from wearing caps or other head coverings. These may rub against the incision. As your incision heals, the skin may appear pink or red. It may also feel slightly bumpy or raised. This is called a healing ridge. Over time, the color should fade and the raised skin will become less noticeable. When to seek medical care: Call your healthcare provider right away if you have any of these: ? More pain, redness, swelling, bleeding, or foul-smelling discharge around the incision area ? Fever of 101?F (38.3?C) or higher, or as directed by your child's healthcare provider ? Shaking chills ? Vomiting or nausea that doesn?t go away ? Numbness, coldness, or tingling around the incision area, or changes in skin color ? Opening of the sutures or wound -Stitches or chris that come apart or fall out or surgical tape falls off before 7 days, or as directed by your healthcare provider ? ACTIVITY: The day of surgery should be spent resting. However, you can be up for short periods of time, I.E., going to the bathroom or kitchen. Avoid lifting or straining. On the day following surgery, you can be up and about as desired. ? LIFTING: Restrict your lifting to no more than five (5) pounds for the 3 days following surgery. For the second week after surgery, don?t lift more than ten pounds. We will decide when you are done with restrictions and when you can return to work, at your follow-up appointment. No sexual activity for two weeks. ? DIET: There are no dietary restrictions following surgery. However, you may want to start with small amounts of liquids to avoid nausea the day of surgery. ? INCISION CARE: You will notice purple skin glue closing the incision. Do not peel this off- it will wear off on its own. After 24 hours you may shower. The dressing may be replaced for comfort, but is not necessary. An ice bag may be applied to the incision for 72 hours following surgery. ? SIGNS OF INFECTION: It is not unusual to have some black and blue discoloration of the skin around the inicision. It will slowly disappear. If you have any increased redness, drainage, fever (above 100 degrees), please contact your doctor for an examination. ? DISCOMFORT: You may expect to have some mild discomfort at the incision sight. If severe pain develops you should contact your doctor for further instructions. ? DRIVING: NO driving for 24 hrs after surgery, or if you are still taking narcotic pain medication. ? MEDICATIONS: Alternate Tylenol 1000mg by mouth every 8 hours and Ibuprofen 600mg every 6 hours. Make sure you take ibuprofen with food and not on an empty stomach. Take the Tylenol and ibuprofen continuously for the first 72hrs- not just when you have pain. Use the tramadol for breakthrough pain. Use ICE! Twenty minutes on, and then off, continuously for the first 72hours. If you are taking narcotic pain medication, follow the instructions on the label and do not drive. Pain medications can make you very constipated. Make sure you are moving your bowels daily. If not, take Miralax, milk of magnesia or magnesium citrate. Anesthesia makes you very constipated. Take a dose of milk of magnesia the morning after surgery. ? REPORT: Unusual swelling, severe pain, unresolved nausea, signs of infection, or difficulty in urination to your surgeon. Follow up in clinic with Dr. Frey or Ofelia in 10 days [phone]: [phone] Activity:: see above Remove Dressings/Wound Care:: 24 hours Shower/Bathe:: 24 hours Diet:: Normal Diet Discharge Orders Discharge Orders: Discharge Order (Routine); Ordered 05/02/21 Ordered By: Becca Frey DS: Diagnosis Discharge Diagnosis (1) Mass of right axilla: Status: Acute (2) Sebaceous cyst: Status: Acute
--- NOTE | 2021-05-02 15:44 | W.ANESPOSTOP ---
Postoperative Evaluation Date, Time and Location Date Performed: 05/02/21 Time Performed: 15:44 Patient Location: PACU Vital Signs Most Recent Imported Vital Signs: Most Recent Vital Signs Temp Pulse Resp BP Pulse Ox 36.5 C 64 14 113/59 L 99 05/02/21 15:39 05/02/21 15:39 05/02/21 15:39 05/02/21 15:39 05/02/21 15:39 Pain Score Most Recent Pain Score: Most Recent Pain Score Pain Level 0 05/02/21 15:39 Assessment Mental Status: Awake (Alert & Oriented to Patient Baseline) Airway and Respiratory Function: Patent airway with normal (patient baseline) respiratory exam Cardiovascular Function: Hemodynamically Stable Hydration Status: Adequately Hydrated Nausea & Vomiting: No Nausea or Vomiting Pain: Pt. Denies Any Pain Peripheral Nerve Block: Patient did not receive a nerve block
--- NOTE | 2021-05-02 21:22 | W.PM.OP ---
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 Risks included but not limited to risk of bleeding, infection, dehiscence, scarring, need for future revision surgery. We will proceed with the surgery. She had been marked in preop. PROCEDURE IN DETAIL: The patient was taken into the operating room, placed in the prone position. MAC was administered. A prophylactic dose of antibiotic was given. The patient was prepped and draped in a usual manner. The procedure began by infiltrating lidocaine with epinephrine around the cyst area. Then, I proceeded with the help of a 15C blade to make an incision and remove a small wedge of tissue that includes a comedo point. The incision was done superiorly then inferiorly to a full thickness and to the skin down to the cyst. The cyst was detached of the surrounding structure with the help of blunt dissection. Hemostasis was achieved with electrocautery. The wound was closed with 3-0 Prolene. The first cyst is in the low back. This is 1 x 1 cm. Again this is a recurrent cyst. The second cyst is in the mid thoracic on the left-hand side. This is 2 x 1 cm. The defect is closed with 3-0 Prolene.. The patient tolerated the procedure well without complications and transferred to recovery room in stable condition. I was present and participated in all aspects of the procedure. Sponge, needle, and instrument counts were completed at the end of the procedure. The procedure, risks and complications, which include but are not limited to bleeding, infection, and possibility of recurrence of this mass, and of course the possibility of recurrence despite the use of a drain were quite thoroughly explained to the patient, and she agreed to proceed. DESCRIPTION OF OPERATION: With the patient in the main operating room under adequate general endotracheal anesthesia, she was placed in prone position with all pressure points adequately padded. Her arm was adducted. At this point, attention was then directed to this large soft tissue along the anterior auxiliary line. the site of the incision was marked in preOp. This entire area was prepped with chloroprep and draped in the usual sterile fashion. a 3cm incision is greater at the most inferior portion of the axillae/apex of the mass.. Dissection was then carried through the subcutaneous tissue, and at this point, a large lipoma was encountered. Superficial planes were established to separate the lipoma from the subcutaneous tissue. Dissection was then carried circumferentially down to the muscle of this entire lipoma where she also had multiple other small lipomas. It was subsequently removed in its entirety and sent to pathology. It is 3 x 2 cm. And has consistency of a lipoma. At this point, the rest of the wound was thoroughly checked, and we did not see any other abnormalities. A nice deep field block was then obtained using 0.25% plain Marcaine. The subcutaneous tissue was approximated using interrupted 3-0 monocryl. . The skin was then approximated using skin glue.
== END 2021-05-02 16:55 | disposition home or self-care (01) ==
PROVIDERS: PCP Family Medicine; Visit Provider Surgery
PROC: (CPT 24071; principal; 2021-05-02 12:00)
PROC: (CPT 19302; 2021-05-02 12:00)
DX: L72.3 Sebaceous cyst (principal); D17.21 Benign lipomatous neoplasm of skin and subcutaneous tissue of right arm
CPT/HCPCS: 24071; 11402; 11401; 88304; J0690; J1100; J1885; J2250; J2405; J2704

== ENCOUNTER 2021-09-06 09:33 | Emergency (ER) | payer MEDICAID, SELFPAY ==
[2021-09-06 09:39] VITALS: BP 114/85; PULSE 81; RESP 16; TEMP 36.6; O2SAT 97
--- NOTE | 2021-09-06 09:43 | ED.GENADUL_ITS ---
Discharge Plan Disposition Patient Disposition: HOME Condition: Stable Discharge Details Clinical Impression: Pharyngitis Primary Care Provider: Patel Toney ED Provider: Wolfgang Rasheed Home Meds and New Rx's Prescriptions: Continued vitamin E mixed 400 unit tablet 400 unit PO DAILY RF: 0 Mirena 1 EACH intrauterine device 1 ea Intrauterine ONCE Qty: 1 RF: 0 famotidine 20 MG tablet 20 mg PO BID PRNRF: 0 albuterol sulfate 90 mcg/actuation HFA aerosol inhaler 2 puff IH .q4-6H PRN (Reason: shortness of breath or wheezing) Qty: 8.5 RF: 0 Discharge Instructions Instructions: Pharyngitis (ED) Additional Instructions: Rapid strep is negative, culture is pending. COVID test was also obtained and pending, please watch for new or worsening symptoms and return to the ER for any concerns. Efox-gpm-klsjwjn medications as directed for symptomatic control. Medical Decision Making This is a 46-year-old female presenting requesting a rapid strep test as she began having a scratchy throat last night. Otherwise asymptomatic. Clinically she appears well, hemodynamically stable, airway patent, no evidence of trismus or airway compromise. She is afebrile. Symptoms began last night 2 days after her negative COVID test. We will obtain a COVID swab as well as a rapid strep. Rapid strep negative, culture pending COVID pending Discussed negative strep with patient, she has no additional questions or concerns and will discharge. Standard discharge and return precautions provided This documentation was generated using [employer] dictation system, please disregard any oddities of phrase or misspellings. Medical Records Medical records reviewed: Yes I reviewed the patient's medical records. Lab Data Lab results reviewed: Yes I reviewed the patient's lab results. Labs: 09/06/21 09:45 Pharynx Group A Streptococcus Culture - Pending HPI General Mode of arrival: ambulatory . Date/Time Provider Initiated Documentation: 09/06/21 09:43 . Limitations to Documentation: no limitations . Information obtained by: patient . HPI Narrative: This is a 46-year-old female, denies significant past medical history, presenting for a stress she throat that began last night, requesting a strep test. Patient had a negative COVID test both last and this Saturday that were provided from her office in a random fashion. She has no additional concerns or complaints at time. Denies headache, fever, difficulty eating or swallowing, cough or shortness of breath. Has not taken any vcmr-ofq-ypxtqbo medications for her symptoms. Patient reports that she sleeps in a very cold room and believe is why her throat is scratchy Related Data Home Medications Medication Instructions Recorded Confirmed Mirena 1 ea INTRAUTERINE ONCE #1 implant 07/08/14 09/06/21 famotidine 20 mg PO BID PRN 09/21/14 09/06/21 albuterol sulfate 2 puff IH .q4-6H PRN #8.5 gm 10/30/19 09/06/21 vitamin E mixed 400 unit tablet 400 unit PO DAILY 04/13/21 09/06/21 Previous Rx's Medication Instructions Recorded albuterol sulfate 2 puff IH .q4-6H PRN #8.5 gm 10/30/19 Allergies Allergy/AdvReac Type Severity Reaction Status Date / Time oxycodone [From Percocet] AdvReac Mild Nausea Unverified 09/06/21 09:49 General JUSTIN: 3 Review of Systems Constitutional Constitutional: Denies fever(s) and Denies headache(s) ENT Ears, Nose, Mouth, and Throat: Denies headache(s) and Reports sore throat Cardiovascular Cardiovascular: Denies chest pain and Denies dyspnea Respiratory Respiratory: Denies cough and Denies dyspnea Gastrointestinal Gastrointestinal: Denies abdominal pain, Denies nausea and Denies vomiting Neurologic Neurologic: Denies headache(s) PFSH All Active Problems Pharyngitis (Acute) Sebaceous cyst (Acute) Mass of right axilla (Acute) Migraine (Chronic) Dysplasia of cervix, low grade (BG 1) (Acute) IUD surveillance (Acute 05/10/16) Maldonado-[place] disease (Acute 02/29/16) Pt. 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 Pets and animals: No Sexually active: Yes Current gender identity: female Seatbelt use: always Do you feel safe at home: Yes Do you feel safe in your relationship?: Yes Female Reproductive History Menstrual control method: progestin IUCD (07/03/18) History History 4 Para Hx # Term Pregnancies 3 Multiple births Hx # Pregnancies Ectopic pregnancies AB induced Hx Number of Living Children AB spontaneous Exam Const General: cooperative, healthy appearing, comfortable and no acute distress Orientation: alert and awake HENMT Head: normal to inspection, normocephalic and atraumatic Ears: external ears normal, TM's normal bilaterally and EAC's normal General nose exam: external nose normal Face and sinus: normal facial exam Mouth: moist mucous membranes Throat: posterior oropharynx normal Eyes General: appearance normal, both eyes and all related structures Conjunctivae: conjunctivae normal Neck Neck: normal visual inspection, full ROM, no lymphadenopathy, no meningeal signs, trachea midline, supple and nontender Resp Effort & Inspection: normal respiratory effort and able to speak in complete sentences Auscultation: clear to auscultation bilaterally Cardio Rate: regular rate Rhythm: regular rhythm Skin General skin exam: no rashes or lesions noted Neuro General: patient alert, patient awake, moves all extremities and no focal motor deficits Cognition: normal cognition Speech: speech normal Gait: normal gait Sensory Exam: no sensory deficits noted Psych Appearance: grossly normal Mental Status: mental status grossly normal
[2021-09-07 11:02] LABS: COVID-19 RT-PCR UVMMC Result Positive (Negative)
--- NOTE | 2021-09-07 11:06 | W.ED.FU ---
Follow Up Plan: Patient's COVID test was positive. We did call, and left a message.
== END 2021-09-06 10:26 | disposition home or self-care (01) ==
PROVIDERS: Emergency Provider Physician Assistant; PCP Family Medicine
DX: U07.1 COVID-19 (principal)
CPT/HCPCS: 87880; 99282; U0003; 87081

== ENCOUNTER 2022-01-17 09:05 | Emergency (ER) | payer MEDICAID, SELFPAY ==
[2022-01-17 09:09] VITALS: BP 122/63; PULSE 79; RESP 16; TEMP 36.4; O2SAT 97
--- NOTE | 2022-01-17 09:28 | ED.GENADUL_ITS ---
Discharge Plan Disposition Patient Disposition: HOME Condition: Stable Discharge Details Clinical Impression: Tinea pedis of right foot Primary Care Provider: Patel Toney ED Provider: Wolfgang Rasheed Home Meds and New Rx's Prescriptions: New oqujhxcnxt-czhfyjtbzju-zivehxb 8-1-1 % solution 1 ml topical DAILY 14 Days Qty: 15 0RF Continued vitamin E mixed 400 unit tablet 400 unit PO DAILY Mirena 1 EACH intrauterine device 1 ea Intrauterine ONCE Qty: 1 Label Comments: has had the IUD for about 4 years 08/28/15 famotidine 20 MG tablet 20 mg PO BID PRN albuterol sulfate 90 mcg/actuation HFA aerosol inhaler 2 puff IH .q4-6H PRN (Reason: shortness of breath or wheezing) Qty: 8.5 0RF Discharge Instructions Instructions: Athlete's Foot (ED) Additional Instructions: Keep your feet clean and dry. You may also use nondistended natural lotion to keep your feet from becoming too dry and cracking. Use the topical psytkenoxs-yadmoodkazq-dojiwvo as directed. If symptoms are to persist and I do recommend outpatient follow-up with podiatry. Please watch for new or worsening symptoms and return to the ER for any concerns. Medical Decision Making 46-year-old female reports right foot skin cracking, dryness, itching and burning with flaking over the past month or so, she has tried raaw-hsm-ttcrpiy medication with little relief. Denies rash elsewhere on her body. Clinically she appears well, nontoxic. There is not appear to be any toenail involvement. No signs of secondary cellulitis infection. Plan is to treat with a topical otvykiqoge-xaoqkyclwtj-karfkyz topical medication and we discussed if symptoms not improving then outpatient referral to podiatry and/or dermatology may be required. Standard discharge and return precautions were provided. Patient understands, is agreeable to this plan, and has no additional questions or concerns upon discharge. This documentation was generated using [employer] system, please disregard any oddities of phrase or misspellings. Medical Records Medical records reviewed: Yes I reviewed the patient's medical records. HPI General Mode of arrival: ambulatory . Date/Time Provider Initiated Documentation: 01/17/22 09:06 . Limitations to Documentation: no limitations . Information obtained by: patient . History of Present Illness 46 year old F presents to the emergency department with the chief complaint of R foot infection, described as mild, with intensity rated at 2. Quality is described as burning (itching), and is localized to the right and lower extremity. Patient reports no radiation. Patient started experiencing this month(s) (1) and it has been constant. No relieving factors improve symptom(s), No exacerbating factors reported . Patient notes no other symptoms.. Patient did receive the following treatments prior to arrival, other (otc antifungal) Related Data Home Medications Medication Instructions Recorded Confirmed levonorgestrel 20 mcg/24 hours (7 1 ea intrauterine ONCE #1 implant 07/08/14 01/17/22 yrs) 52 mg intrauterine device (Mirena) famotidine 20 mg tablet 20 mg PO BID PRN 09/21/14 09/06/21 albuterol sulfate 90 mcg/actuation 2 puff inhalation .q4-6H PRN 10/30/19 09/06/21 aerosol inhaler shortness of breath or wheezing #8.5 grams vitamin E mixed 400 unit tablet 400 unit PO DAILY 04/13/21 09/06/21 ciclopirox 8 %-fluconazole 1 1 ml topical DAILY 2 weeks #15 01/17/ %-terbinafine 1 % topical solution grams Previous Rx's Medication Instructions Recorded albuterol sulfate 90 mcg/actuation 2 puff inhalation .q4-6H PRN 10/30/19 aerosol inhaler shortness of breath or wheezing #8.5 grams ciclopirox 8 %-fluconazole 1 1 ml topical DAILY 2 weeks #15 01/17/ %-terbinafine 1 % topical solution grams Allergies Allergy/AdvReac Type Severity Reaction Status Date / Time oxycodone [From Percocet] AdvReac Mild Nausea Unverified 01/17/22 09:15 General Stated Complaint: RashLesion JUSTIN: 5 Review of Systems Constitutional Constitutional: Denies fever(s) Musculoskeletal Musculoskeletal: Denies arthralgias Integumentary/Breasts Skin/Breast: Denies erythema PFSH All Active Problems Tinea pedis of right foot (Acute) Sebaceous cyst (Acute) Mass of right axilla (Acute) Migraine (Chronic) Dysplasia of cervix, low grade (BG 1) (Acute) IUD surveillance (Acute 05/10/16) Maldonado-[place] disease (Acute 02/29/16) Pt. 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 [employer] Pets and animals: No Sexually active: Yes Current gender identity: female Seatbelt use: always Do you feel safe at home: Yes Do you feel safe in your relationship?: Yes Female Reproductive History Menstrual control method: progestin IUCD (07/03/18) History History 4 Para Hx # Term Pregnancies 3 Multiple births Hx # Pregnancies Ectopic pregnancies AB induced Hx Number of Living Children AB spontaneous Exam Const General: cooperative, healthy appearing, comfortable and no acute distress Orientation: alert and awake HENMT Head: normal to inspection, normocephalic and atraumatic Eyes Conjunctivae: conjunctivae normal Neck Neck: normal visual inspection, trachea midline and supple Resp Effort & Inspection: normal respiratory effort and able to speak in complete sentences Skin Rashes: no rashes Other: Right foot at the base of the fifth and fourth toes as well as the webbing between the third and fourth and fourth and fifth toes, diffuse mild dry, cracking skin, with flaking. Neuro, vascular, tendon intact. There is no erythema, warmth, tenderness, drainage. Normal capillary refill. Neuro General: patient alert, patient awake, moves all extremities and no focal motor deficits Cognition: normal cognition Speech: speech normal Gait: normal gait Motor: muscle tone normal throughout Sensory Exam: no sensory deficits noted Extrem General: full ROM, capillary refill normal and no pedal edema Psych Appearance: grossly normal Mental Status: mental status grossly normal Course Vital Signs Vital signs: Vital Signs Temperature 36.4 C L 01/17/22 09:09 Pulse 79 01/17/22 09:09 Respiratory Rate 16 01/17/22 09:09 Blood Pressure 122/63 01/17/22 09:09 Pulse Oximetry 97 01/17/22 09:09 Temperature 36.4 C L 01/17/22 09:09 Pulse 79 01/17/22 09:09 Respiratory Rate 16 01/17/22 09:09 Respiratory Effort 01/17/22 09:16 Blood Pressure 122/63 01/17/22 09:09 Pulse Oximetry 97 01/17/22 09:09
== END 2022-01-17 09:55 | disposition home or self-care (01) ==
PROVIDERS: Emergency Provider Physician Assistant; PCP Family Medicine
DX: B35.3 Tinea pedis (principal)
CPT/HCPCS: 99283

== ENCOUNTER 2022-05-10 13:07 | Emergency (ER) | payer MEDICAID, SELFPAY ==
[2022-05-10 13:11] VITALS: BP 124/85; PULSE 82; RESP 18; TEMP 36.8; O2SAT 98
--- NOTE | 2022-05-10 13:55 | W.ED.GENAD ---
Discharge Plan Disposition Patient Disposition: HOME Condition: Stable Discharge Details Clinical Impression: Strain of thoracic back region Primary Care Provider: Patel Toney ED Provider: Marisa Chisholm Home Meds and New Rx's Prescriptions: New methocarbamol 500 mg tablet 500 mg PO Q6H PRN (Reason: muscle spasm) Qty: 14 0RF Continued vitamin E mixed 400 unit tablet 400 unit PO DAILY Mirena 1 EACH intrauterine device 1 ea Intrauterine ONCE Qty: 1 Label Comments: has had the IUD for about 4 years 08/28/15 famotidine 20 MG tablet 20 mg PO BID PRN albuterol sulfate 90 mcg/actuation HFA aerosol inhaler 2 puff IH .q4-6H PRN (Reason: shortness of breath or wheezing) Qty: 8.5 0RF Discharge Instructions Instructions: Thoracic Back Strain (ED) Additional Instructions: Your presentation appears consistent with a muscle strain in your upper back. This is best treated with alternating ice and heat and localized massage. Alternate ice and heat to the affected area(s) several times daily for 20 minutes at a time. Alternate tylenol and motrin as needed and directed for pain. A prescription for muscle relaxers has been sent electronically to your pharmacy to take as needed and directed. Follow-up with your primary care doctor in 1 week. Return to the emergency department with any worsening or new concerning symptoms. Stand Alone Forms: Work Release Discharge Data Discharge Date/Time-TO BE ENTERED AT DEPARTURE: 05/10/22 14:59 Discharge Physician: Marisa Chisholm Medical Decision Making 46 years old female presents with right upper back pain that started suddenly upon getting up from a chair earlier today. Patient states pain is worse with any movement and also hurts to take a deep breath. Patient appears uncomfortable with movement of her head and upper body. Her vitals are within normal limits. She has a specific significantly tender localized area to the right thoracic paraspinal region just medial to the scapula. Appears consistent with a thoracic back strain on versus pinched nerve. History and presentation does not appear consistent with ACS, PE, dissection, pneumonia or kidney stone. Do not indication for labs or imaging. Urine test negative. She was given an IM injection Toradol with some relief. She was advised that this will require several days of alternating ice and heat, Tylenol and ibuprofen and localized massage with using a tennis ball up against a wall. A prescription for muscle relaxer sent electronically to her pharmacy. Advised to follow up with the primary care doctor for re-evaluation. Usual and customary return precautions given prior to discharge. Medical Records Medical records reviewed: Yes I reviewed the patient's medical records. HPI General Mode of arrival: ambulatory. Date/Time Provider Initiated Documentation: 05/10/22 13:30. Limitations to Documentation: no limitations. Information obtained by: patient. HPI Narrative: Patient is a 46-year-old female presents with right-sided upper back pain that started suddenly when she stood up quickly from a chair. Patient states the pain is located in her right upper back and is worse with any movement. She states even breathing makes the pain worse. Patient denies any symptoms prior to standing up quickly. She denies any anterior chest pain or shortness of breath. She states she applied ice without improvement and denies taking any medication. Related Data Home Medications Medication Instructions Recorded Confirmed levonorgestrel 20 mcg/24 hours (7 1 ea intrauterine ONCE #1 implant 07/08/14 01/17/22 yrs) 52 mg intrauterine device (Mirena) famotidine 20 mg tablet 20 mg PO BID PRN 09/21/14 09/06/21 albuterol sulfate 90 mcg/actuation 2 puff inhalation .q4-6H PRN 10/30/19 09/06/21 aerosol inhaler shortness of breath or wheezing #8.5 grams vitamin E mixed 400 unit tablet 400 unit PO DAILY 04/13/21 09/06/21 methocarbamol 500 mg tablet 500 mg PO Q6H PRN muscle spasm #14 05/10/22 tabs Previous Rx's Medication Instructions Recorded albuterol sulfate 90 mcg/actuation 2 puff inhalation .q4-6H PRN 10/30/19 aerosol inhaler shortness of breath or wheezing #8.5 grams methocarbamol 500 mg tablet 500 mg PO Q6H PRN muscle spasm #14 05/10/22 tabs Allergies Allergy/AdvReac Type Severity Reaction Status Date / Time oxycodone [From Percocet] AdvReac Mild Nausea Unverified 01/17/22 09:15 General Stated Complaint: Nk/Back Pain JUSTIN: 3 Review of Systems All systems reviewed & are unremarkable except as noted in HPI and below Constitutional Constitutional: Reports as per HPI, Denies chills and Denies fever(s) Eyes Eyes: Denies blurry vision ENT Ears, Nose, Mouth, and Throat: Denies dizziness, Denies sore throat and Denies throat swelling Cardiovascular Cardiovascular: Denies chest pain and Denies dyspnea Respiratory Respiratory: Denies cough and Denies dyspnea Gastrointestinal Gastrointestinal: Denies abdominal pain, Denies diarrhea and Denies vomiting Genitourinary Genitourinary: Denies hematuria and Denies dysuria Musculoskeletal Musculoskeletal: Reports back pain and Denies numbness Integumentary/Breasts Skin/Breast: Denies lesions and Denies rash Neurologic Neurologic: Denies dizziness, Denies localized weakness and Denies numbness Allergic/Immunologic Allergic/Immunologic: Denies throat swelling PFSH All Active Problems (Updated 05/10/22 @ 16:10 by Marisa Chisholm DO) Strain of thoracic back region (Acute) Sebaceous cyst (Acute) Mass of right axilla (Acute) Dysplasia of cervix, low grade (BG 1) (Acute) IUD surveillance (Acute 05/10/16) Maldonado-[place] disease (Acute 02/29/16) Pt. denies this Medical History (Updated 05/10/22 @ 16:10 by Marisa Chisholm DO) Migraine Surgical History Cholecystectomy , Ectopic 2007 R Salpingectomy Social History Smoking/Tobacco Use Status: Former Tobacco Use Quit Date: 08/26/08 Second Hand Exposure: No Smoking risk assessment performed?: Yes Alcohol Intake: current Alcohol Intake frequency: holidays/special occasions only Alcohol type: beer and hard liquor Details: occasional Drug use: Never Substance use type: does not use Adopted: No Caregiver/Support person: No Foster care: No Household members: family Housing: house Number of Children: 3 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 Pets and animals: No Sexually active: Yes Current gender identity: female Seatbelt use: always Do you feel safe at home: Yes Do you feel safe in your relationship?: Yes Female Reproductive History Menstrual control method: progestin IUCD (07/03/18) History History 4 Para Hx # Term Pregnancies 3 Multiple births Hx # Pregnancies Ectopic pregnancies AB induced Hx Number of Living Children AB spontaneous Exam Const General: cooperative, uncomfortable and no acute distress Orientation: alert, awake and oriented x3 HENMT Head: normal to inspection Mouth: oral mucosae normal Eyes General: appearance normal, both eyes and all related structures Neck Neck: normal visual inspection Resp Effort & Inspection: normal respiratory effort and able to speak in complete sentences Auscultation: clear to auscultation bilaterally Cardio Rate: regular rate Rhythm: regular rhythm GI Palpation: soft, not firm, not rigid and nontender Back/Spine/Pelvis Back/spine/pelvis image: 1. Localized area of tenderness to palpation in the right lumbar paraspinal region just medial to the scapula. There is no evidence of erythema, edema, ecchymosis, rash or lesions. Skin General skin exam: no rashes or lesions noted Neuro General: patient alert, patient awake and patient oriented x3 Motor: muscle tone normal throughout Extrem General: normal to inspection and full ROM Other: Bilateral radial pulses are intact. Psych Appearance: grossly normal Affect: normal affect Course Vital Signs Vital signs: Vital Signs Temperature 98.2 F 05/10/22 13:11 Pulse 82 05/10/22 13:11 Respiratory Rate 18 05/10/22 13:11 Blood Pressure 124/85 05/10/22 13:11 Pulse Oximetry 98 05/10/22 13:11 Temperature 98.2 F 05/10/22 13:11 Temperature Source Temporal Artery Scan 05/10/22 13:11 Pulse 82 05/10/22 13:11 Respiratory Rate 18 05/10/22 13:11 Respiratory Effort Non-Labored 05/10/22 13:31 Blood Pressure 124/85 05/10/22 13:11 Blood Pressure Position Sitting 05/10/22 13:11 Pulse Oximetry 98 05/10/22 13:11 Oxygen Delivery Method Room Air 05/10/22 13:11 Oxygen Flow Rate 0 05/10/22 13:11 Pain Level 10 05/10/22 13:11
[2022-05-10] MEDS: Ketorolac 60 MG/2 ML VIAL IM (14:07)
[2022-05-10] MEDS: Lidocaine 5% Patch 1 PATCH TP (14:11)
--- NOTE | 2022-05-10 17:03 | NUR.NOTE ---
Nursing Note: Work note faxed to [facility].
== END 2022-05-10 14:59 | disposition home or self-care (01) ==
PROVIDERS: Emergency Provider Physician Assistant; PCP Family Medicine
DX: S29.012A Strain of muscle and tendon of back wall of thorax, initial encounter (principal); Z87.891 Personal history of nicotine dependence; Z32.02 Encounter for pregnancy test, result negative; X50.9XXA Other and unspecified overexertion or strenuous movements or postures, initial encounter
CPT/HCPCS: 81025; 96372; 99284; J1885

== ENCOUNTER 2022-08-21 08:03 | Emergency (ER) | payer MEDICAID, SELFPAY ==
[2022-08-21 08:05] VITALS: BP 111/73; PULSE 82; RESP 18; TEMP 37.1; O2SAT 98
[2022-08-21 08:19] LABS: Bilirubin Negative (Negative); Blood Negative (Negative); Clarity Clear (Clear); Glucose Negative (Negative); Ketones Negative (Negative); Leukocyte Esterase Negative (Negative); Nitrite Negative (Negative); Specific Gravity >= 1.030 (1.005-1.025); Urobilinogen 0.2 EU/dL (Up TO 0.2)
--- NOTE | 2022-08-21 08:26 | W.ED.GENAD ---
Discharge Plan Disposition Patient Disposition: Home Condition: Stable Discharge Details Clinical Impression: Lumbago Primary Care Provider: Patel Toney ED Provider: Sania Rojas Home Meds and New Rx's Prescriptions: Continued vitamin E mixed 400 unit tablet 400 unit PO DAILY Mirena 1 EACH intrauterine device 1 ea Intrauterine ONCE Qty: 1 Label Comments: has had the IUD for about 4 years 08/28/15 famotidine 20 MG tablet 20 mg PO BID PRN albuterol sulfate 90 mcg/actuation HFA aerosol inhaler 2 puff IH .q4-6H PRN (Reason: shortness of breath or wheezing) Qty: 8.5 0RF Discharge Instructions Instructions: Low Back Strain (ED) Additional Instructions: No evidence of urinary tract infection. Please return to the ER or be seen again if you feel any sicker at any time. Alternate ice and heat, please take Tylenol or Ibuprofen with food every 4-6 hours as needed for pain and swelling. Follow up with primary care provider in 3-5 days. Return to ED sooner if any worsening or concerns. Increase oral fluids. Stand Alone Forms: Work Release Medical Decision Making 47-year-old female presents to the ER with chief complaint of right flank pain which began last night. She is taking some Tylenol and naproxen which has given her little to no relief. She denies any dysuria no known injury. Denies any nausea vomiting fever or any other associated symptoms. Pain gets worse with movement prolonged sitting. Urinalysis shows no evidence for UTI no blood my suspicion for kidney stone is low however I did discuss strict return instructions with her instructed her to return if any worsening. Instructed her to return for nausea vomiting or concerns. This text was generated using [employer] system, please disregard any oddities of phrase or misspellings. Lab Data Lab results reviewed: Yes I reviewed the patient's lab results. Labs: Laboratory Tests Range/Units 08/21/22 08:12 Urine Color (Yellow) Yellow Urine Clarity (Clear) Clear Urine pH (5-8) 6.0 Ur Specific [place] (1.005-1.025) >= 1.030 H Urine Protein (Negative) mg/dL Negative Urine Ketones (Negative) mg/dL Negative Urine Blood (Negative) Negative Urine Nitrite (Negative) Negative Urine Bilirubin (Negative) Negative Urine Urobilinogen (Up TO 0.2) EU/dL 0.2 Ur Leukocyte Esterase (Negative) Negative Urine Glucose (Negative) mg/dL Negative HPI General Mode of arrival: ambulatory. Date/Time Provider Initiated Documentation: 08/21/22 08:16. Limitations to Documentation: no limitations. Information obtained by: patient, RN notes reviewed and old records reviewed. HPI Narrative: 47-year-old female presents to the ER with chief complaint of right flank pain which began last night. She is taking some Tylenol and naproxen which has given her little to no relief. She denies any dysuria no known injury. Denies any nausea vomiting fever or any other associated symptoms. Pain gets worse with movement prolonged sitting. 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 Past medical history includes migraines surgical history includes cholecystectomy and ectopic . Related Data Home Medications Medication Instructions Recorded Confirmed levonorgestrel 20 mcg/24 hours (8 1 ea intrauterine ONCE #1 implant 07/08/14 08/21/22 yrs) 52 mg intrauterine device (Mirena) famotidine 20 mg tablet 20 mg PO BID PRN 09/21/14 08/21/22 albuterol sulfate 90 mcg/actuation 2 puff inhalation .q4-6H PRN 10/30/19 08/21/22 aerosol inhaler shortness of breath or wheezing #8.5 grams vitamin E mixed 400 unit tablet 400 unit PO DAILY 04/13/21 08/21/22 Previous Rx's Medication Instructions Recorded albuterol sulfate 90 mcg/actuation 2 puff inhalation .q4-6H PRN 10/30/19 aerosol inhaler shortness of breath or wheezing #8.5 grams Allergies Allergy/AdvReac Type Severity Reaction Status Date / Time oxycodone [From Percocet] AdvReac Mild Nausea Unverified 08/21/22 08:07 General Stated Complaint: FlankPain JUSTIN: 3 Review of Systems All systems reviewed & are unremarkable except as noted in HPI and below Gastrointestinal Gastrointestinal: Denies diarrhea, Denies nausea and Denies vomiting Genitourinary Genitourinary: Denies dysuria and Reports flank pain PFSH All Active Problems (Updated 08/21/22 @ 08:33 by Sania Rojas NP) Lumbago (Acute) Sebaceous cyst (Acute) Mass of right axilla (Acute) Dysplasia of cervix, low grade (BG 1) (Acute) IUD surveillance (Acute 05/10/16) Maldonado-[place] disease (Acute 02/29/16) Pt. denies this Medical History (Updated 08/21/22 @ 08:33 by Sania Rojas NP) Migraine Surgical History Cholecystectomy , Ectopic 2007 R Salpingectomy Social History Smoking/Tobacco Use Status: Former Tobacco Use Quit Date: 08/26/08 Second Hand Exposure: No Smoking risk assessment performed?: Yes Alcohol Intake: current Alcohol Intake frequency: holidays/special occasions only Alcohol type: beer and hard liquor Details: occasional Drug use: Never Substance use type: does not use Adopted: No Caregiver/Support person: No Foster care: No Household members: family Housing: house Number of Children: 3 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 Appears stated age. Normal body habitus. Head: Normocephalic, no trauma. Eyes: Pupils PERRL, Red reflex noted, EOM's intact. Eyelids symmetrical without lesions, discharge, or swelling. ENT: External ear normal to inspection, no mastoid TTP, swelling, or erythema, Nasal turbinates WNL, no nasal discharge. Normal dentition, Posterior pharynx WNL, no exudate. Chest: RRR, Normal S1, S2, distal pulses intact. Resp: Lungs clear to auscultation bilaterally, no wheezes, rales, or rhonchi. Abdomen: Soft, non-distended, Normoactive bowel sounds all 4 quads. Musculoskeletal: Normal gait, 5/5 strength to all four extremities. Her to have tenderness to the right paraspinous back, Skin: No suspicious rashes or lesions. Capillary refill less than 2 sec. Hematologic/Lymphatic: No ecchymosis, no lymphadenopathy. Course Vital Signs Vital signs: Vital Signs Temperature 37.1 C 08/21/22 08:05 Pulse 82 08/21/22 08:05 Respiratory Rate 18 08/21/22 08:05 Blood Pressure 111/73 08/21/22 08:05 Pulse Oximetry 98 08/21/22 08:05 Temperature 37.1 C 08/21/22 08:05 Temperature Source Skin 08/21/22 08:05 Pulse 82 08/21/22 08:05 Respiratory Rate 18 08/21/22 08:05 Blood Pressure 111/73 08/21/22 08:05 Blood Pressure Position Sitting 08/21/22 08:05 Pulse Oximetry 98 08/21/22 08:05 Oxygen Delivery Method Room Air 08/21/22 08:05 Oxygen Flow Rate 0 08/21/22 08:05 Pain Level 8 08/21/22 08:16 Lab/Test Results Lab/Test Results: Laboratory Tests Range/Units 08/21/22 08:12 Urine Color (Yellow) Yellow Urine Clarity (Clear) Clear Urine pH (5-8) 6.0 Ur Specific [place] (1.005-1.025) >= 1.030 H Urine Protein (Negative) mg/dL Negative Urine Ketones (Negative) mg/dL Negative Urine Blood (Negative) Negative Urine Nitrite (Negative) Negative Urine Bilirubin (Negative) Negative Urine Urobilinogen (Up TO 0.2) EU/dL 0.2 Ur Leukocyte Esterase (Negative) Negative Urine Glucose (Negative) mg/dL Negative POC- Test(urine) Negative
[2022-08-21] MEDS: Lidocaine 5% Patch 1 PATCH TP (08:31)
[2022-08-21] MEDS: Ibuprofen 600 MG TAB PO (08:31)
[2022-08-21 08:38] VITALS: BP 111/73; PULSE 82; RESP 18; TEMP 37.1; O2SAT 98
== END 2022-08-21 08:41 | disposition home or self-care (01) ==
PROVIDERS: Emergency Provider Registered Nurse Emergency; PCP Family Medicine
DX: M54.50 Low back pain, unspecified (principal)
CPT/HCPCS: 81025; 99282; 81003

== ENCOUNTER 2022-09-04 01:42 | Outpatient (CLI) | payer MEDICAID, SELFPAY ==
--- NOTE | 2022-09-04 08:00 | DI.MAMMO_ITS ---
Exam(s) MAMMO SCREENING EXAM: MAMMO SCREENING CLINICAL HISTORY: screening TECHNIQUE: Bilateral full field digital CC and MLO mammographic images were obtained with 3D tomosyn thesis and utilizing computer aided detection (CAD). COMPARISON: Available for comparison. FINDINGS: Masses/Architectural Distortion: None seen. Microcalcifications: No suspicious pleomorphic-type are seen. Skin Thickening/Nipple Retraction: None. IMPRESSION: 1. No significant interval change with no specific features of malignancy noted. 2. Unless there is more urgent need, screening mammography is recommended, as per [place] [employer] guidelines. BI-RADS Category 1 - Negative Breast Density - Category C - Heterogeneously dense Breast density category C or D implies that the patient has dense breast tissue. Dense breast tissue is very common and is not abnormal but dense breast tissue can make it harder to find cancer on a ma mmogram. Also, dense breast tissue may increase their breast cancer risk. This information about the result of the mammogram report was provided to the patient to raise their awareness. Use this report when you speak with the patient about their risks for breast cancer, which includes their family hist ory. At that time, you may recommend for more screening tests (Ultrasound or MRI) as they might be us eful based on their risk. A negative radiographic report should not delay biopsy if a dominant or clinically suspicious mass is present. Up to ten percent of cancers are not identified on mammography. A negative report may reinforce clinical impression. Adenosis and dense breasts may obscure an underlying neoplasm. False positive reports average 6 to 10%. Patient will receive a letter notifying them of these results.
== END 2022-09-04 02:02 ==
LOC: DI 01:42
PROVIDERS: PCP Family Medicine; Visit Provider Advanced Practice Midwife
DX: Z12.31 Encounter for screening mammogram for malignant neoplasm of breast (principal); R92.8 Other abnormal and inconclusive findings on diagnostic imaging of breast
CPT/HCPCS: 77063; 77067

== ENCOUNTER 2022-09-25 01:36 | Outpatient (CLI) | payer MEDICAID, SELFPAY ==
--- NOTE | 2022-09-25 06:30 | DI.US_ITS ---
Exam(s) US PELVIS TRANSVAGINAL EXAM: US PELVIS TRANSVAGINAL CLINICAL HISTORY: iud check,vaginal bleeding,n93.9. TECHNIQUE: Transabdominal and transvaginal pelvic ultrasound was performed using standard protocol. COMPARISON: US PELVIS TRANSVAG from 09/09/2017 FINDINGS: KIDNEYS: Limited renal evaluation is unremarkable. UTERUS: Position: Retroverted. Size: 6.5 long by 4.5 AP by 5.7 transverse cm Endometrium: 0.7 cm. Normal for patient's menstrual status. There is an IUD which is in good position . Myometrium: Unremarkable. Cervix: Multiple nabothian cysts are present. OVARIES: Right: 3.6 x 2.6 x 2.9 cm Cyst or mass: No suspicious cystic or solid masses. There is a 3.2 x 2.3 x 2.5 cm simple right ovari an cyst. This is likely physiologic. Left: 2.8 x 1.2 x 2.3 cm Cyst or mass: No suspicious cystic or solid masses. DOPPLER: Color: Symmetric and uniform flow to both ovaries. CUL-DE-SAC: Free fluid: None. Other: None. IMPRESSION: 1. Limited evaluation of the kidneys is unremarkable. 2. Normal-appearing uterus with endometrial stripe within normal limits. 3. IUD appears to be in good position. 4. Unremarkable bilateral ovaries. DATA REPOSITORY:
== END 2022-09-25 01:56 ==
LOC: DI 01:36
PROVIDERS: PCP Family Medicine; Visit Provider Obstetrics & Gynecology
DX: N93.8 Other specified abnormal uterine and vaginal bleeding (principal); Z97.5 Presence of (intrauterine) contraceptive device; N83.291 Other ovarian cyst, right side
CPT/HCPCS: 76830; 76856

== ENCOUNTER 2022-10-02 15:15 | Outpatient (REF) | payer MEDICAID, SELFPAY ==
--- NOTE | 2022-10-02 14:30 | PAPFT_PTH ---
PATIENT: Valarie Mendes LOC: N U#:[id number] AGE/SX: 47/F ROOM: RE10/02/[address]: Garima Roldan DO : 1975 BED: DIS: 10/02/2022 SPEC #: [id number] RECD: 10/02/22 17:54 STATUS: SANCHO REQ #: [id number] SHAMRA: 10/02/22 14:[address]: Garima Roldan DEPT: [facility] Cytology RECD BY: Blessing Londono ENTERED: 10/02/22 17:55 SP TYPE: PAPFT OTHR DR: Patel Toney Tissues: 1 - CX/ENDOCX FOR PAP SMEARS Procedures: PAP THIN PREP/UVM Screening HPV DNA PROBE Comments: [id number]
== END 2022-10-02 15:16 | disposition home or self-care (01) ==
LOC: LBN 15:15
PROVIDERS: PCP Family Medicine; Visit Provider Obstetrics & Gynecology
DX: Z12.4 Encounter for screening for malignant neoplasm of cervix (principal); Z11.51 Encounter for screening for human papillomavirus (HPV); Z87.410 Personal history of cervical dysplasia
CPT/HCPCS: 88142; 87624

== ENCOUNTER 2022-10-30 11:09 | Outpatient (REF) | payer MEDICAID, SELFPAY ==
--- NOTE | 2022-10-30 11:15 | SKI_PTH ---
PATIENT: Valarie eMndes LOC: [facility] U#:[id number] AGE/SX: 47/F ROOM: RE10/30/[address]: Becca Frey : 1975 BED: DIS: 10/30/2022 SPEC #: [id number] RECD: 10/30/22 12:48 STATUS: SANCHO REQ #: [id number] SHAMAR: 10/30/22 11:[address]: Becca Frey DEPT: Surgical Specimen RECD BY: Blessing Londono ENTERED: 10/30/22 12:49 SP TYPE: CARLOS SANDERS DR: Patel Toney Tissues: 1 - SKIN CYST/TAG/DEBRIDEMENT Procedures: GROSS AND MICRO LEVEL 3 Comments: [id number]
== END 2022-10-30 11:10 | disposition home or self-care (01) ==
LOC: LBN 11:09
PROVIDERS: PCP Family Medicine; Visit Provider Surgery
DX: L72.9 Follicular cyst of the skin and subcutaneous tissue, unspecified (principal)
CPT/HCPCS: 88304

== ENCOUNTER 2023-01-22 11:23 | Outpatient (CLI) | payer MEDICAID, SELFPAY ==
[2023-01-22 10:57] LABS: HCT 42.3 % (36.0-46.0); HGB 13.7 g/dL (11.2-15.7); MCH 29.8 pg (27.0-33.0); MCHC 32.4 % (32.0-36.0); MCV 92 fL (80-95); MPV 9.6 fL (8.0-11.0); Platelet Count 300 10^3/uL (130-400); RBC 4.59 10^6/uL (3.93-5.22); RDW-SD 43.6 fL; WBC 6.99 10^3/uL (4.4-10.8)
== END 2023-01-22 11:24 | disposition home or self-care (01) ==
LOC: LBO 11:24
PROVIDERS: PCP Family Medicine; Visit Provider Obstetrics & Gynecology
DX: R53.83 Other fatigue (principal)
CPT/HCPCS: 36415; 85027; 84443

== ENCOUNTER 2023-03-06 20:46 | Emergency (ER) | payer MEDICAID, SELFPAY ==
[2023-03-06 20:52] VITALS: BP 124/99; PULSE 99; RESP 28; TEMP 36.2; O2SAT 95
--- NOTE | 2023-03-06 21:00 | RT.EKG_ITS ---
APPROVED REPORT Exam: Resting ECG Reason for Exam: SOB Patient Location: E HR:88 bpm ECG Measurements Heart Rate 88 AXIS NH 103 P 7 QRSd 85 QRS -17 QT 359 T 2 QTc 434 Conclusion Sinus rhythm...normal P axis, V-rate 60- 99 Narrow complex normal sinus rhythm at a rate of 88. Left axis deviation no signs of LVH based on vol tage criteria. Mild ST segment depressions V4 and V5. No ST segment elevations. No T wave inversio ns. T wave flattening in aVF. No acute injury pattern. No prior for comparison.
[2023-03-06] MEDS: Albuterol/Ipratropium 3 ML UPD VIAL (21:06)
--- NOTE | 2023-03-06 21:45 | DI.RAD_ITS ---
Exam(s) XR CHEST 2V PA LATERAL EXAM: XR CHEST 2V PA LATERAL CLINICAL HISTORY: shortness of breath. TECHNIQUE: 2D digital imaging was performed. COMPARISON: No exams were available for comparison FINDINGS: 2 views: Heart size is normal. The mediastinum is not widened. Lungs are clear. No infiltrates nor pleural effusions. IMPRESSION: No acute pulmonary findings. DATA REPOSITORY: RADIATION DOSE DELIVERED:
[2023-03-06 21:58] LABS: Abs Immature Grans 0.33 10^3/uL (0.0-0.06); Absolute Basophil Count 0.08 10^3/uL (0.0-0.2); Absolute Eosinophil Count 0.13 10^3/uL (0.0-0.7); Absolute Lymphocyte Count 4.05 10^3/uL (1.2-3.4); Basophils % 0.6; HCT 42.7 % (36.0-46.0); HGB 14.1 g/dL (11.2-15.7); Immature Grans % 2.5; Lymphocytes % 30.3; MCH 29.8 pg (27.0-33.0); MCV 90 fL (80-95); MPV 9.7 fL (8.0-11.0); Monocytes % 6.7; Neutrophils % 58.9; Platelet Count 354 10^3/uL (130-400); RBC 4.73 10^6/uL (3.93-5.22); RDW 13.7 % (11.7-14.6); RDW-SD 45.5 fL; WBC 13.37 10^3/uL (4.4-10.8)
[2023-03-06 21:59] LABS: Absolute Neutrophil Count 7.87 10^3/uL (1.2-6.7)
[2023-03-06] MEDS: Albuterol/Ipratropium 3 ML UPD VIAL UPD (22:14)
[2023-03-06] MEDS: Normal Saline 1,000 ML 1000 ML IV (22:14)
[2023-03-06] MEDS: methylPREDNISolone SUCC 125 MG VIAL IVP (22:14)
[2023-03-06 22:17] LABS: ALT 31 U/L (14-59); AST 11 U/L (15-37); Alkaline Phosphatase 97 U/L (46-116); BUN 18 mg/dL (7-18); Bilirubin, Total 0.3 mg/dL (0.2-1.0); Calcium 8.8 mg/dL (8.5-10.1); Chloride 102 mmol/L (98-107); Estimated GFR 70.36 (mL/min/1.73m2); Glucose 90 mg/dL (74-106); Potassium 3.7 mmol/L (3.5-5.1); Sodium 140 mmol/L (136-145); Total Protein 7.8 g/dL (6.4-8.2)
[2023-03-06 22:26] LABS: D-Dimer 306 ng/mlFEU (<500)
[2023-03-06 22:45] VITALS: BP 95/50; PULSE 78; PULSE 86; RESP 23; O2SAT 94
[2023-03-06 22:46] VITALS: PULSE 90; RESP 13; O2SAT 91
[2023-03-06 22:50] VITALS: PULSE 92; RESP 16; O2SAT 95
--- NOTE | 2023-03-06 22:54 | DI.VRAD_ITS ---
PROCEDURE INFORMATION: Exam: XR Chest Exam date and time: 03/06/2023 22:33 Age: 47 years old Clinical indication: Shortness of breath TECHNIQUE: Imaging protocol: Radiologic exam of the chest. Views: 2 views. COMPARISON: CT ABD PELVIS WITH CONTRAST 03/25/2018 06:37 FINDINGS: Lungs: No consolidation. Pleural spaces: No pleural effusion. No pneumothorax. Heart/Mediastinum: No cardiomegaly. Bones/joints: No acute fracture. IMPRESSION: Negative portable chest. Dictated and Authenticated by: Alesia Rodríguez MD. Ordering:ROLLY Funk MD
[2023-03-06 23:00] VITALS: BP 103/54; PULSE 79; PULSE 84; RESP 25; O2SAT 94
[2023-03-06 23:01] VITALS: PULSE 78; RESP 15; O2SAT 95
[2023-03-06] MEDS: Lidocaine 1% Multi-Dose 50 ML VIAL (23:32)
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
--- NOTE | 2023-03-07 04:21 | NUR.NOTE ---
Pt placed on care management list for F/U with Pulmonary for Asthma Exacerbation to be seen within 2 days :
--- NOTE | 2023-03-08 13:51 | ED.FU.B_ITS ---
Date of service: 03/08/23 Time of Service: 13:51 Follow Up Plan: Patient contacted the ER and had a question regarding her inhalers. She has been prescribed albuterol, Symbicort, and Combivent. She called to ask if she should be taking all 3 of these as well as the prednisone. I reviewed her plan, and it does sound very reasonable to utilize all 3, but just keep the albuterol to a as needed basis for acute exacerbation components. Patient otherwise sounds well, and states that she is feeling okay. Discussed red flags for which to return. I have extensively reviewed the treatment plan and discharge instructions with the patient. I have addressed all patient concerns at this time. The patient was made aware of what symptoms to monitor for that would warrant a return to the emergency department. Discussed the plan with the patient, they demonstrate verbal understanding and agreement with our assessment and plan at this time. The documentation in this chart was dictated using [employer] dictation software. Please excuse any dictation errors.
== END 2023-03-06 23:57 | disposition home or self-care (01) ==
PROVIDERS: Emergency Provider Physician Assistant; PCP Family Medicine
DX: J45.901 Unspecified asthma with (acute) exacerbation (principal)
CPT/HCPCS: 80053; 93005; 96360; 99285; 71046; 85025; 85379; 93010; 99284; J2930; J7620

== ENCOUNTER 2023-04-03 10:54 | Emergency (ER) | payer MEDICAID, SELFPAY ==
[2023-04-03 11:01] VITALS: BP 131/73; PULSE 71; RESP 18; TEMP 36.6; O2SAT 99
[2023-04-03 11:21] LABS: Bilirubin Negative (Negative); Blood Negative (Negative); Clarity Sl Cloudy (Clear); Glucose Negative (Negative); Ketones Trace mg/dL (Negative); Leukocyte Esterase Small (Negative); Nitrite Negative (Negative); Specific Gravity >= 1.030 (1.005-1.025); Urobilinogen 0.2 mg/dL (Up to 0.2); pH 5.5 (5-8)
[2023-04-03 11:28] LABS: Bacteria Moderate HPF (Negative); C & S Indicated? No/Sq. Contamination; Casts Negative LPF (Negative); Crystals Negative HPF (Negative); Epithelial Cells Many HPF (Negative); Mucus Negative (Negative); RBC Negative HPF (0-2)
[2023-04-03 11:51] LABS: Bilirubin Negative (Negative); Blood Negative (Negative); Clarity Clear (Clear); Glucose Negative (Negative); Ketones Trace mg/dL (Negative); Leukocyte Esterase Trace (Negative); Nitrite Negative (Negative); Specific Gravity >= 1.030 (1.005-1.025); Urobilinogen 0.2 mg/dL (Up to 0.2)
--- NOTE | 2023-04-03 11:53 | W.ED.GENAD ---
Discharge Plan Disposition Patient Disposition: Home Condition: Good Discharge Details Clinical Impression: Urinary tract infection Primary Care Provider: Patel Toney ED Provider: Karlee Urena Home Meds and New Rx's Prescriptions: New nitrofurantoin monohyd/m-cryst [Macrobid] 100 mg capsule 100 mg PO BID 5 Days Qty: 10 0RF Rx Instructions: must administer with a meal/food Continued budesonide-formoterol [Symbicort] inhalation fluticasone propion-salmeterol [Advair HFA] 115-21 mcg/actuation HFA aerosol inhaler 2 puff inhalation BID Qty: 12 6RF Rx Instructions: administer with spacer hydroxyzine HCl 25 mg tablet See Rx Instructions PO Q6H PRN PRN (Reason: headaches) Qty: 60 3RF Rx Instructions: 25-50 mg orally every 6 hours, as needed PRN; furosemide 20 mg tablet 20 mg PO QAM Qty: 3 0RF Mirena 1 EACH intrauterine device 1 ea Intrauterine ONCE Qty: 1 Patient Comments: has had the IUD for about 4 years 08/28/15 vitamin E mixed 400 unit capsule 400 unit PO DAILY Qty: 90 3RF famotidine 20 mg tablet 20 mg PO DAILY PRN albuterol sulfate 90 mcg/actuation HFA aerosol inhaler 2 puff IH .q4-6H PRN (Reason: shortness of breath or wheezing) Qty: 8.5 0RF Combivent Respimat 20-100 mcg/actuation mist 1 puff inhalation Q6H Qty: 4 0RF Discharge Instructions Instructions: Urinary Tract Infection in Women (ED) Additional Instructions: Drink some extra fluids in spite of taking furosemide. Macrobid as prescribed. Recheck with your primary care doc as needed. Return to ED for fever of 100.4 or above, abdominal or flank pain, any other concerns. Discharge Data Discharge Date/Time-TO BE ENTERED AT DEPARTURE: 04/03/23 12:19 Medical Decision Making Patient was given Macrobid for a presumed UTI due to her symptoms and recent guidelines. Her specific gravity is high at greater than 1030 and I told her this. She will continue fluids. I do think the Lasix will help her get rid of third spacing. She only is on this for 3 days. She will return for fever of 100.4 or above with vomiting, severe flank pain, any other concerns. Medical Records Medical records reviewed: Yes I reviewed the patient's medical records. Lab Data Lab results reviewed: Yes I reviewed the patient's lab results. Lab results narrative: Has specific gravity greater than 1030, trace leuk esterase, lots of epis. HPI General Date/Time Provider Initiated Documentation: 04/03/23 11:33. HPI Narrative: This 47-year-old female patient presents with a chief complaint of urinary urgency and frequency that is been ongoing for the past 3 days. The patient states she has a long history of urinary tract infections and has had about 5-7 over the years. These have progressed to pyelonephritis at times. The patient denies burning on urination or abdominal pain. She has had no fever or chills. She has no flank pain. 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 This stems from having been on prednisone for about a month due to asthma exacerbation which is better. She denies chest pain or difficulty breathing at this time. There has been no nausea, vomiting, or diarrhea. Related Data Home Medications Medication Instructions Recorded Confirmed levonorgestrel 21 mcg/24 hours (8 1 ea intrauterine ONCE #1 implant 07/08/14 04/03/23 yrs) 52 mg intrauterine device (Mirena) albuterol sulfate 90 mcg/actuation 2 puff inhalation .q4-6H PRN 10/30/19 04/03/23 aerosol inhaler shortness of breath or wheezing #8.5 grams famotidine 20 mg tablet 20 mg PO DAILY PRN 08/31/22 04/03/23 vitamin E mixed 400 unit capsule 400 unit PO DAILY #90 caps 09/04/22 04/03/23 hydroxyzine HCl 25 mg tablet See Rx Instructions PO Q6H PRN PRN 10/15/22 04/03/23 headaches #60 tabs ipratropium 20 mcg-albuterol 100 1 puff inhalation Q6H #4 grams 03/06/23 04/03/23 mcg/actuation mist for inhalation (Combivent Respimat) budesonide-formoterol [Symbicort] inhalation 03/20/23 04/03/23 fluticasone propionate 115 2 puff inhalation BID #12 grams 03/20/23 04/03/23 mcg-salmeterol 21 mcg/actuation HFA inhaler (Advair HFA) furosemide 20 mg tablet 20 mg PO QAM #3 tabs 04/03/23 04/03/23 nitrofurantoin 100 mg PO BID 5 days #10 caps 04/03/23 monohydrate/macrocrystals 100 mg capsule (Macrobid) Previous Rx's Medication Instructions Recorded albuterol sulfate 90 mcg/actuation 2 puff inhalation .q4-6H PRN 10/30/19 aerosol inhaler shortness of breath or wheezing #8.5 grams vitamin E mixed 400 unit capsule 400 unit PO DAILY #90 caps 09/04/22 hydroxyzine HCl 25 mg tablet See Rx Instructions PO Q6H PRN PRN 10/15/22 headaches #60 tabs ipratropium 20 mcg-albuterol 100 1 puff inhalation Q6H #4 grams 03/06/23 mcg/actuation mist for inhalation (Combivent Respimat) fluticasone propionate 115 2 puff inhalation BID #12 grams 03/20/23 mcg-salmeterol 21 mcg/actuation HFA inhaler (Advair HFA) furosemide 20 mg tablet 20 mg PO QAM #3 tabs 04/03/23 nitrofurantoin 100 mg PO BID 5 days #10 caps 04/03/23 monohydrate/macrocrystals 100 mg capsule (Macrobid) Allergies Allergy/AdvReac Type Severity Reaction Status Date / Time adhesive Allergy Intermediate Itching Verified 04/03/23 11:04 oxycodone [From Percocet] AdvReac Mild Nausea Unverified 04/03/23 11:04 General Stated Complaint: Urinary JUSTIN: 4 Review of Systems Constitutional Constitutional: Denies chills, Denies fever(s), Denies headache(s) and Denies weakness Eyes Eyes: Denies diplopia and Reports other (no redness) ENT Ears, Nose, Mouth, and Throat: Denies otalgia, Denies headache(s), Denies nasal congestion, Denies nasal discharge, Denies neck pain and Denies sore throat Cardiovascular Cardiovascular: Denies chest pain, Denies palpitations and Denies dyspnea Respiratory Respiratory: Denies cough and Denies dyspnea Gastrointestinal Gastrointestinal: Denies abdominal pain, Denies diarrhea, Denies nausea and Denies vomiting Genitourinary Genitourinary: Denies dysuria and Reports urinary urgency (and frequency) Musculoskeletal Musculoskeletal: Denies myalgias, Denies muscle weakness, Denies neck pain, Denies numbness and Reports other (has edema) Integumentary/Breasts Skin/Breast: Denies change in pigmentation and Denies rash Neurologic Neurologic: Denies headache(s), Denies numbness and Denies weakness Endocrine Endocrine: Denies palpitations PFSH All Active Problems Urinary tract infection (Acute) Maldonado-[place] disease (Acute 02/29/16) Pt. denies this Migraine headache with aura (Acute) Migraine headache without aura (Acute) Paresthesia of hand, bilateral (Acute) Fatigue (Acute) Asthma exacerbation (Acute) Medical History Dense breast tissue Dysplasia of cervix, low grade (BG 1) IUD surveillance (05/10/16) Mirena IUD placed Jun 2018 Mass of right axilla Mastodynia, female Right breast Sebaceous cyst Surgical History Cholecystectomy , Ectopic 2007 R Salpingectomy Social History Smoking/Tobacco Use Status: Former Tobacco Use Quit Date: 08/26/08 Second Hand Exposure: No Smoking risk assessment performed?: Yes Alcohol Intake: current Alcohol Intake frequency: holidays/special occasions only Alcohol type: beer and hard liquor Details: occasional Drug use: Never Substance use type: does not use Adopted: No Caregiver/Support person: No Foster care: No Household members: family Housing: house Number of Children: 3 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 Pets and animals: No Sexually active: Yes Current gender identity: female Seatbelt use: always Do you feel safe at home: Yes Do you feel safe in your relationship?: Yes Female Reproductive History Menstrual control method: progestin IUCD (07/03/18) History History 4 Para Hx # Term Pregnancies 3 Multiple births Hx # Pregnancies Ectopic pregnancies AB induced Hx Number of Living Children AB spontaneous Exam Const General: no acute distress, well developed, well groomed and not in acute distress Nutritional Appearance: well nourished Orientation: alert and oriented x3 [facility] Head: normocephalic and atraumatic Ears: external ears normal Mouth: oropharynx normal and moist mucous membranes Throat: posterior oropharynx normal Eyes Conjunctivae: conjunctivae normal Neck Neck: full ROM and supple Chest Chest: normal inspection of the chest Resp Effort & Inspection: normal respiratory effort Auscultation: clear to auscultation bilaterally Cardio Rate: regular rate Rhythm: regular rhythm Heart Sounds: no murmurs and no rubs GI Inspection: normal to inspection Palpation: soft, nontender and other (non distended) Auscultation: normal bowel sounds Skin General skin exam: no rashes or lesions noted and other (pink, warm, dry) Neuro General: patient alert, patient awake and patient oriented x3 Speech: speech normal Motor: other (PHILLIPS) Sensory Exam: no sensory deficits noted Extrem General: normal to inspection, full ROM and pedal edema present Psych Mental Status: mental status grossly normal Speech and Movement: speech and movement normal Affect: normal affect Course Vital Signs Vital signs: Vital Signs Temperature 36.6 C 04/03/23 11:01 Pulse 71 04/03/23 11:01 Respiratory Rate 18 04/03/23 11:01 Blood Pressure 131/73 04/03/23 11:01 Pulse Oximetry 99 04/03/23 11:01 Temperature 36.6 C 04/03/23 11:01 Temperature Source Skin 04/03/23 11:01 Pulse 71 04/03/23 11:01 Respiratory Rate 18 04/03/23 11:01 Respiratory Effort Normal 04/03/23 11:11 Blood Pressure 131/73 04/03/23 11:01 Blood Pressure Position Sitting 04/03/23 11:01 Pulse Oximetry 99 04/03/23 11:01 Oxygen Delivery Method Room Air 04/03/23 11:01 Oxygen Flow Rate 0 04/03/23 11:01 Pain Level 0 04/03/23 11:01 Lab/Test Results Lab/Test Results: Laboratory Tests Range/Units 04/03/23 11:00 Urine Color (Yellow) Yellow Urine Clarity (Clear) Sl Cloudy Urine pH (5-8) 5.5 Ur Specific [place] (1.005-1.025) >= 1.030 H Urine Protein (Negative) mg/dL Negative Urine Ketones (Negative) mg/dL Trace H Urine Blood (Negative) Negative Urine Nitrite (Negative) Negative Urine Bilirubin (Negative) Negative Urine Urobilinogen (Up to 0.2) mg/dL 0.2 Ur Leukocyte Esterase (Negative) Small H Urine RBC (0-2) HPF Negative Urine WBC (0-5) HPF 3-5 Ur Epithelial Cells (Negative) HPF Many Urine Crystals (Negative) HPF Negative Urine Bacteria (Negative) HPF Moderate Urine Casts (Negative) LPF Negative Urine Mucus (Negative) Negative Ur Culture Indicated? No/Sq. Contamination Urine Glucose (Negative) mg/dL Negative
[2023-04-03 12:00] LABS: Bacteria Few HPF (Negative); C & S Indicated? No/Sq. Contamination; Casts Negative LPF (Negative); Crystals Negative HPF (Negative); Epithelial Cells Moderate HPF (Negative); Mucus Trace (Negative); RBC Negative HPF (0-2); WBC 0-2 HPF (0-5)
== END 2023-04-03 12:19 | disposition home or self-care (01) ==
PROVIDERS: Registered Nurse Emergency; Emergency Provider Emergency Medicine; PCP Family Medicine
DX: N39.0 Urinary tract infection, site not specified (principal)
CPT/HCPCS: 99283; 81003; 81015; 99284

== ENCOUNTER 2023-04-15 08:58 | Outpatient (CLI) | payer MEDICAID, SELFPAY ==
[2023-04-15 14:06] LABS: ALT 77 U/L (14-59); Alkaline Phosphatase 89 U/L (46-116); Anion Gap 8.2 mmol/L (3-11); BUN 24 mg/dL (7-18); Bilirubin, Total 0.5 mg/dL (0.2-1.0); CO2 32.8 mmol/L (21.0-32.0); CREATININE 1.5 mg/dL (0.55-1.02); Calcium 9.3 mg/dL (8.5-10.1); Chloride 96 mmol/L (98-107); Estimated GFR 43.25 (mL/min/1.73m2); Glucose 122 mg/dL (74-106); Sodium 137 mmol/L (136-145); Total Protein 7.8 g/dL (6.4-8.2)
[2023-04-15 15:43] LABS: AST 42 U/L (15-37)
== END 2023-04-15 08:59 | disposition home or self-care (01) ==
LOC: LBO 09:00
PROVIDERS: PCP Family Medicine; Visit Provider Student in an Organized Health Care Education/Training Program
DX: J45.909 Unspecified asthma, uncomplicated (principal); R60.0 Localized edema; R53.83 Other fatigue
CPT/HCPCS: 36415; 80053

== ENCOUNTER 2023-04-23 03:26 | Outpatient (CLI) | payer MEDICAID, SELFPAY ==
[2023-04-23] MEDS: Methacholine 100 MG VIAL IH (11:44)
[2023-04-23] MEDS: Albuterol HFA 18 GM 200 PUFF INH IH (11:44)
[2023-04-23] MEDS: Inhaler, Assist Device 1 EACH MC (11:45)
--- NOTE | 2023-04-24 07:26 | W.PFT ---
Date of service: 04/23/23 Time of Service: 09:59 Pulmonary Function Test Result Indications: Cough Interpretation Spirometry: No airflow limitation at baseline. There was a 24% decrease in FEV1 with administration of 1.0mg/mL methacholine. Lung Volumes: There is hyperinflation Diffusion Capacity: Normal diffusion Airway Pressure: Normal airways resistance Impression Normal baseline pulmonary function with a positive methacholine challenge. Clinical Correlation therefore is recommended.
== END 2023-04-23 03:27 | disposition home or self-care (01) ==
LOC: RT 03:26
PROVIDERS: PCP Family Medicine; Visit Provider Student in an Organized Health Care Education/Training Program
DX: J45.909 Unspecified asthma, uncomplicated (principal)
CPT/HCPCS: 94060; 94070; 94726; 94729; 94010; J7674

== ENCOUNTER 2023-05-01 04:24 | Outpatient (CLI) | payer MEDICAID, SELFPAY ==
[2023-05-01 14:10] LABS: Anion Gap 6.1 mmol/L (3-11); BUN 25 mg/dL (7-18); CO2 30.9 mmol/L (21.0-32.0); Calcium 8.8 mg/dL (8.5-10.1); Chloride 100 mmol/L (98-107); Estimated GFR 70.36 (mL/min/1.73m2); Glucose 94 mg/dL (74-106); Potassium 3.6 mmol/L (3.5-5.1); Sodium 137 mmol/L (136-145)
== END 2023-05-01 04:25 | disposition home or self-care (01) ==
PROVIDERS: PCP Family Medicine; Visit Provider Student in an Organized Health Care Education/Training Program
DX: R60.0 Localized edema (principal); J45.909 Unspecified asthma, uncomplicated
CPT/HCPCS: 36415; 80048

== ENCOUNTER 2024-05-25 13:18 | Outpatient (CLI) | payer MEDICAID, SELFPAY ==
--- NOTE | 2024-05-25 13:24 | DI.CT_ITS ---
Exam(s) CT ABDOMEN PELVIS WO EXAM: CT ABDOMEN PELVIS WO CLINICAL HISTORY: RT FLANK PAIN, ? KIDNEY STONE. TECHNIQUE: Imaging Protocol: Axial computed tomography images with coronal and sagittal reformatted images were created and reviewed. Oral: / no COMPARISON: CT ABD PELVIS WITH CONTRAST from 03/25/2018 FINDINGS: Lung Bases: No acute findings. Liver: Normal density. Previously noted liver cyst has decreased in size. Two adjacent smaller cyst s are also present. no suspicious mass. Gallbladder and biliary tract: Status post cholecystectomy. Small no biliary dilation. Pancreas: Normal density. No abnormal calcifications or inflammatory process. Spleen: Normal. Kidneys: Normal size, contour and axis. No radiodense stones. No obstructive uropathy. No suspicious masses seen. Adrenal glands: No masses seen. Lymph nodes: Within normal limits. Vasculature: Abdominal aorta non-dilated. Soft tissues: Unremarkable. Bladder: Empty. Bowel: No obstruction or bowel wall thickening. Normal quantity of stool. Appendix normal. Peritoneal cavity: No ascites. No focal collection. No mesenteric inflammatory response. Reproductive organs: Wall retroverted uterus with IUD in place. Bones: Unremarkable for age. IMPRESSION: No acute abnormality in the abdomen or pelvis. RADIATION DOSE DELIVERED: 392.04mGy.cm Total DLP DATA REPOSITORY: All CT scans at this facility are submitted to the National Radiology Data Registry (NRDR) Dose Index Registry (DIR) with the [employer] (ACR). RADIATION OPTIMIZATION: All CT scans at this facility use at least one of these dose optimization te chniques: automated exposure control; mA and/or kV adjustment per patient size (includes targeted exa ms where dose is matched to clinical indication); or iterative reconstruction.
== END 2024-05-25 13:38 ==
LOC: DI 13:20
PROVIDERS: PCP Nurse Practitioner Family; Visit Provider Nurse Practitioner Family
DX: R10.11 Right upper quadrant pain (principal)
CPT/HCPCS: 74176

== ENCOUNTER 2024-11-24 08:59 | Emergency (ER) | payer MEDICAID, SELFPAY ==
[2024-11-24 09:09] VITALS: BP 136/81; PULSE 71; RESP 12; TEMP 36.7; O2SAT 99
--- NOTE | 2024-11-24 09:14 | ED.GENADUL_ITS ---
Discharge Plan Disposition Patient Disposition: Home Condition: Stable Discharge Details Clinical Impression: Pharyngitis Primary Care Provider: PORTER BLAKELY ED Provider: Sania Rojas Home Meds and New Rx's Prescriptions: Continued budesonide-formoterol [Symbicort] 2 puff inhalation BID PRN estradiol 0.5 mg tablet 0.5 mg PO DAILY Qty: 90 1RF hydroxyzine HCl 25 mg tablet See Rx Instructions PO Q6H PRN PRN (Reason: headaches) Qty: 60 3RF Rx Instructions: 25-50 mg orally every 6 hours, as needed PRN; albuterol sulfate 90 mcg/actuation HFA aerosol inhaler 2 puff IH .q4-6H PRN (Reason: shortness of breath or wheezing) Qty: 8.5 0RF Mirena 1 EACH intrauterine device 1 ea Intrauterine ONCE Qty: 1 Patient Comments: has had the IUD for about 4 years 08/28/15 vitamin E mixed 400 unit capsule 400 unit PO DAILY Qty: 90 3RF Discharge Instructions Instructions: Sore Throat, Adult ED Additional Instructions: At this time your rapid strep swab is negative, influenza and COVID flu swabs are also negative. Please gargle with warm salt water up to 3 times daily as needed. Please take Tylenol or Ibuprofen with food every 4-6 hours as needed for pain and swelling. Follow up with primary care provider in 3-5 days. Return to ED sooner if any worsening or concerns. Thank you for allowing us to care for you today. Referrals: PORTER BLAKELY, RESEARCH & ANALYTICS MANAGER [Primary Care Provider] - Return if symptoms worsen Discharge Data Discharge Date/Time-TO BE ENTERED AT DEPARTURE: 11/24/24 09:50 HPI General Mode of arrival: ambulatory . Date/Time Provider Initiated Documentation: 11/24/24 09:10 . Limitations to Documentation: no limitations . Information obtained by: patient, RN notes reviewed and old records reviewed . HPI Narrative: 49 year old female presents to the ER with cc sore throat which began this a.m. She did have Tylenol at 745. She also complains of clogged ears runny nose and dry cough. 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 Does have a history of asthma. Related Data Home Medications ?Medication ?Instructions ?Recorded ?Confirmed levonorgestrel 21 mcg/24 hr (up to 1 ea intrauterine ONCE #1 implant 07/08/14 11/24/24 8 years) 52 mg intrauterine device (Mirena) vitamin E mixed 400 unit capsule 400 unit PO DAILY #90 caps 09/04/22 11/24/24 hydroxyzine HCl 25 mg tablet See Rx Instructions PO Q6H PRN PRN 10/15/2209/19 headaches #60 tabs budesonide-formoterol 2 puff inhalation BID PRN 03/20/23 11/24/24 estradiol 0.5 mg tablet 0.5 mg PO DAILY #90 tabs 05/11/24 11/24/24 albuterol sulfate 90 mcg/actuation 2 puff inhalation .q4-6H PRN 09/09/24 11/24/24 aerosol inhaler shortness of breath or wheezing #8.5 grams Previous Rx's ?Medication ?Instructions ?Recorded vitamin E mixed 400 unit capsule 400 unit PO DAILY #90 caps 09/04/22 hydroxyzine HCl 25 mg tablet See Rx Instructions PO Q6H PRN PRN 10/15/22 headaches #60 tabs estradiol 0.5 mg tablet 0.5 mg PO DAILY #90 tabs 05/11/24 albuterol sulfate 90 mcg/actuation 2 puff inhalation .q4-6H PRN 09/09/24 aerosol inhaler shortness of breath or wheezing #8.5 grams Allergies Allergy/AdvReac Type Severity Reaction Status Date / Time adhesive Allergy Intermediate Itching Verified 11/24/24 09:14 oxycodone (From Percocet) AdvReac Mild Nausea Verified 11/24/24 09:14 General Stated Complaint: Sorethroat JUSTIN: 4 Review of Systems All systems reviewed & are unremarkable except as noted in HPI and below ENT Ears, Nose, Mouth, and Throat: Reports as per HPI, Reports post nasal drip and Reports sore throat Exam Narrative Exam Narrative: Constitutional: Alert and oriented x3. Appears stated age. Normal body habitus. Head: Normocephalic, no trauma. Eyes: Pupils PERRL, Red reflex noted, EOM's intact. Eyelids symmetrical without lesions, discharge, or swelling. ENT: Bilateral TM's WNL, External ear normal to inspection, no mastoid TTP, swelling, or erythema, Nasal turbinates WNL, no nasal discharge. Normal dentition, Posterior pharynx erythemic, no exudate. Resp: Lungs clear to auscultation bilaterally, no wheezes, rales, or rhonchi. . Hematologic/Lymphatic: No ecchymosis, no lymphadenopathy. Course Vital Signs Vital signs: Vital Signs Temperature 36.7 C 11/24/24 09:09 Pulse 71 11/24/24 09:09 Respiratory Rate 12 11/24/24 09:09 Blood Pressure 136/81 11/24/24 09:09 Pulse Oximetry 99 11/24/24 09:09 Temperature 36.7 C 11/24/24 09:09 Temperature Source Oral 11/24/24 09:09 Pulse 71 11/24/24 09:09 Respiratory Rate 12 11/24/24 09:09 Blood Pressure 136/81 11/24/24 09:09 Blood Pressure Position Sitting 11/24/24 09:09 Pulse Oximetry 99 11/24/24 09:09 Oxygen Delivery Method Room Air 11/24/24 09:09 Oxygen Flow Rate 0 11/24/24 09:09 Pain Level 8 11/24/24 09:09 Medical Decision Making 49 year old female presents to the ER with cc sore throat which began this a.m. She did have Tylenol at 745. She also complains of clogged ears runny nose and dry cough. 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 Does have a history of asthma. Swab for rapid strep, flu and COVID. negative Strep, Flu, and Covid Discussed results with patient who verbalized understanding. Patient remained hemodynamically alert and oriented throughout the ER stay instructed to do salt water gargles and return if any worsening follow-up with PCP. Verbalized understanding. This text was generated using [employer] system, please disregard any oddities of phrase or misspellings. Lab Data Lab results reviewed: Yes I reviewed the patient's lab results. Quality:SDOH Health Related Social Needs: No Data to Display PFSH All Active Problems (Updated 11/24/24 @ 09:44 by Sania Rojas NP) Pharyngitis (Acute) Swelling (Acute) Asthma (Chronic) Maldonado-[place] disease (Acute 02/29/16) Pt. denies this Migraine headache without aura (Acute) Paresthesia of hand, bilateral (Acute) Fatigue (Acute) Medical History Hot flashes due to menopause Started estradiol Apr 2024, hot flashes improved and she stopped within a few months and hot flashes did not return Mastodynia, female Right breast Dense breast tissue Migraine headache with aura Sebaceous cyst Mass of right axilla IUD surveillance (05/10/16) Mirena IUD placed Jun 2018 Dysplasia of cervix, low grade (BG 1) Surgical History , Ectopic 2006 R Salpingectomy Cholecystectomy Social History Smoking/Tobacco Use Status: Former Tobacco Use Quit Date: 08/26/08 Second Hand Exposure: No Smoking risk assessment performed?: Yes Alcohol Intake: current Alcohol Intake frequency: holidays/special occasions only Alcohol type: beer and hard liquor Details: occasional Drug use: Never Substance use type: does not use Adopted: No Caregiver/Support person: No Foster care: No Household members: family Housing: house Number of Children: 3 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
== END 2024-11-24 09:50 | disposition home or self-care (01) ==
PROVIDERS: Emergency Provider Registered Nurse Emergency; PCP Nurse Practitioner Family
DX: J02.9 Acute pharyngitis, unspecified (principal)
CPT/HCPCS: 87880; 99283; 87081

== ENCOUNTER 2025-01-04 15:06 | Emergency (ER) | payer MEDICAID, SELFPAY ==
[2025-01-04 15:11] VITALS: BP 115/71; PULSE 82; RESP 16; TEMP 36.4; O2SAT 98
[2025-01-04 15:12] VITALS: BP 115/71; PULSE 82; RESP 16; TEMP 36.4; O2SAT 98
--- NOTE | 2025-01-04 15:14 | ED.GENADUL_ITS ---
Discharge Plan Disposition Patient Disposition: Home Condition: Stable Discharge Details Clinical Impression: Urinary frequency Primary Care Provider: PORTER BLAKELY ED Provider: Evan Nuñez Home Meds and New Rx's Prescriptions: Continued budesonide-formoterol [Symbicort] 2 puff inhalation BID PRN estradiol 0.5 mg tablet 0.5 mg PO DAILY Qty: 90 1RF hydroxyzine HCl 25 mg tablet See Rx Instructions PO Q6H PRN PRN (Reason: headaches) Qty: 60 3RF Rx Instructions: 25-50 mg orally every 6 hours, as needed PRN; Mirena 1 EACH intrauterine device 1 ea Intrauterine ONCE Qty: 1 Patient Comments: has had the IUD for about 4 years 08/28/15 vitamin E mixed 400 unit capsule 400 unit PO DAILY Qty: 90 3RF albuterol sulfate 90 mcg/actuation HFA aerosol inhaler 2 puff IH .q4-6H PRN (Reason: shortness of breath or wheezing) Qty: 8.5 12RF Discharge Instructions Additional Instructions: You were seen in the emergency department for your urinary frequency and pressure, your urinalysis shows no evidence of bacteria or UTI. Your CT shows you have stones within the kidneys that are 1 to 2 mm and would pass but they are not likely causing any pain, it is possible you passed a recent very small kidney stone that is not seen on the CT. You are discharged with your yeast/bacterial vaginosis/trichomonas swab pending, I will call you with any positive results and send relevant antibiotics if needed. Otherwise please take [id number] AZO, stay well-hydrated and follow-up with your primary care provider. Please return to the emergency department for any severe increase in symptoms- complete urinary retention, fever, discharge, severe abdominal pain. Referrals: PORTER BLAKELY, GRAVEDIGGER [Primary Care Provider] - HPI General Date/Time Provider Initiated Documentation: 01/04/25 15:10 . HPI Narrative: 49 year-old female presents to ED today by POV/ambulating with a chief complaint of urinary frequency/urgency, no burning sensation with onset over the past couple days. Quality described as generalized urinary pressure, questions strong-smelling urine, no radiation to flank pain, fever, nausea, hematuria, severe abdominal pain, urinary retention. Severity is described as moderate. Palliating factors include nothing specific attempted. Provoking factors include nothing specific. Events leading up to the incident/Associated Symptoms: Patient endorses one episode of kidney stone in far remote past. Patient not anticoagulated. Related Data Home Medications ?Medication ?Instructions ?Recorded ?Confirmed levonorgestrel 21 mcg/24 hr (up to 1 ea intrauterine ONCE #1 implant 07/08/14 01/04/25 8 years) 52 mg intrauterine device (Mirena) vitamin E mixed 400 unit capsule 400 unit PO DAILY #90 caps 09/04/22 01/04/25 hydroxyzine HCl 25 mg tablet See Rx Instructions PO Q6H PRN PRN 10/15/22 01/04/25 headaches #60 tabs budesonide-formoterol 2 puff inhalation BID PRN 03/20/23 01/04/25 estradiol 0.5 mg tablet 0.5 mg PO DAILY #90 tabs 05/11/24 01/04/25 albuterol sulfate 90 mcg/actuation 2 puff inhalation .q4-6H PRN 12/14/24 01/04/25 aerosol inhaler shortness of breath or wheezing #8.5 grams Previous Rx's ?Medication ?Instructions ?Recorded vitamin E mixed 400 unit capsule 400 unit PO DAILY #90 caps 09/04/22 hydroxyzine HCl 25 mg tablet See Rx Instructions PO Q6H PRN PRN 10/15/22 headaches #60 tabs estradiol 0.5 mg tablet 0.5 mg PO DAILY #90 tabs 05/11/24 albuterol sulfate 90 mcg/actuation 2 puff inhalation .q4-6H PRN 12/14/24 aerosol inhaler shortness of breath or wheezing #8.5 grams Allergies Allergy/AdvReac Type Severity Reaction Status Date / Time adhesive Allergy Intermediate Itching Verified 11/24/24 09:14 oxycodone (From Percocet) AdvReac Mild Nausea Verified 11/24/24 09:14 General Stated Complaint: Urinary JUSTIN: 4 Review of Systems All systems reviewed & are unremarkable except as noted in HPI and below Exam Narrative Exam Narrative: GENERAL APPEARANCE: Well-nourished, non-toxic, awake and alert, atraumatic, no acute distress. SKIN: Warm, pink, dry, intact, without rashes/lesions/ulcerations. HEAD: Normocephalic, atraumatic, normal hair distribution for gender/age. EYES: Normal conjunctiva, no exudates on lids/lashes. ENT: Nares patent, no circumoral cyanosis, no facial swelling NECK: Supple, trachea midline, painless cervical ROM. LUNGS/CHEST: Non-labored respirations, normal A/P diameter, symmetrical expansion, no chest wall deformity HEART (CV/PV): No peripheral edema, no JVD. ABDOMEN: Soft, non-distended, no guarding, mild suprapubic tenderness, no CVA tenderness to percussion bilaterally. MSK: Normal ROM, no swelling/deformity to bilateral UEs or LEs, moving all extremities without weakness, no cyanosis, spine midline without tenderness, normal curvature. NEURO: Mental Status AAOx4 - alert to person, place, time, events No facial droop, no forehead involvement. Motor: No focal weakness - strength 5/5 in bilateral UEs and LEs, proximal and distal, symmetric. Sensory: sensation intact to light touch globally. Gait normal: patient ambulated without ataxia into ED room. PSYCH: euthymic, cooperative, pleasant, appropriate speech Course Vital Signs Vital signs: Vital Signs Temperature 36.4 C 01/04/25 15:11 Pulse 82 01/04/25 15:11 Respiratory Rate 16 01/04/25 15:11 Blood Pressure 115/71 01/04/25 15:11 Pulse Oximetry 98 01/04/25 15:11 Temperature 36.4 C 01/04/25 15:12 Pulse 82 01/04/25 15:12 Respiratory Rate 16 01/04/25 15:12 Blood Pressure 115/71 01/04/25 15:12 Pulse Oximetry 98 01/04/25 15:12 Pain Level 0 01/04/25 15:12 Medical Decision Making This dictation utilizes [id number] dictation software and may contain unedited grammatical errors. 49 year-old female presents to ED today by POV/ambulating with a chief complaint of urinary frequency/urgency, no burning sensation with onset over the past couple days. Quality described as generalized urinary pressure, questions strong-smelling urine, no radiation to flank pain, fever, nausea, hematuria, severe abdominal pain, urinary retention. Severity is described as moderate. Palliating factors include nothing specific attempted. Provoking factors include nothing specific. Events leading up to the incident/Associated Symptoms: Patient endorses one episode of kidney stone in far remote past. Patients' medical history: Dysplasia of cervix low-grade, IUD in place, hot flashes due to menopause. Family and social history: Noncontributory. Pertinent exam findings / vital signs include mild suprapubic tenderness, no CVA tenderness to percussion bilaterally, nontoxic, afebrile, stable vitals, benign cardiopulmonary status, managing secretions well. Differential / pathologies of concern include UTI, vaginitis, renal colic. Diagnostic studies of: - UA ordered initially, no signs of UTI. - CT renal study shows stable chronic findings of liver cysts some improved, shows bilateral renal stones 1 to 2 mm not likely causing patient's symptoms - Patient discharged with vaginal pathogen screen pending - Resulted negative Interventions of: -Recommend AZO at time of discharge. ED Course/Assessment/Plan: 49-year-old female presents with urinary frequency and urgency without dysuria, UA is benign, CT renal study of the abdomen is negative, vaginal pathogen screen negative recommend Azo and follow-up with primary care, strict return criteria for any acute worsening or urinary retention or developing fever or flank pain or any other emergent concerns, encouraged aggressive hydration. Findings not consistent with renal obstruction, urinary tract infection, vaginitis, sepsis. Disposition of Urinary Frequency. Patient verbalized understanding of the plan and return to ED criteria and engaged in shared decision making. Medical Records Medical records reviewed: Yes I reviewed the patient's medical records. Imaging Data Radiologic Study: Attestation: I personally reviewed and interpreted this imaging study as follows: Imaging: CT Scan Radiologist's impression: EXAM: CT RENAL COLIC WO CLINICAL HISTORY: urgency/frequency, no UTI. TECHNIQUE: Imaging Protocol: Axial computed tomography images with coronal and sagittal reformatted images were created and reviewed CONTRAST MATERIAL: Intravenous: none Oral: None COMPARISON: CT CT ABDOMEN PELVIS WO from 05/25/2024 FINDINGS: VISUALIZED LUNG BASES: No nodules nor pleural effusions evident. ABDOMEN: There is no ascites. LIVER: The previously present 8 cm cyst in the right hepatic lobe seen on CT scan of 03/25/2018 is again noted to have decreased in size to 4.5 cm diameter which is similar size to the CT scan of 05/25/2024. Two smaller adjacent cysts are unchanged and as is a small subcapsular cyst lower down in the right hepatic lobe measuring 6-7 mm. There are no obvious new intrahepatic findings on this non infused study GALLBLADDER/BILIARY: The gallbladder is again noted be surgically absent. CBD is not dilated. PANCREAS: No evidence of pancreatic mass nor dilatation of the pancreatic duct. SPLEEN: Spleen is not enlarged. No obvious intrasplenic lesions. ADRENALS: There are no significant adrenal masses. KIDNEYS:There is a punctate nonobstructive calculus in the right kidney noted measuring 1 mm. A similar size punctate nonobstructive calculus is noted in the left kidney. No other focal renal findings and no hydronephrosis nor hydroureter. The urinary bladder is collapsed and difficult to evaluate but there are no obvious radiopaque calculi in the urinary bladder and the pelvic ureters are not dilated. No solid renal masses. No calculi nor hydronephrosis. . ABDOMINAL AORTA: Abdominal aorta is not enlarged. LYMPH NODES: There is no retroperitoneal nor paraaortic adenopathy. ABDOMINAL WALL: No evidence of significant anterior abdominal wall nor inguinal hernia. GI: There is no evidence of bowel obstruction, free air, nor abscess. PELVIS: LYMPH NODES: There is no intrapelvic nor inguinal adenopathy. GI: No evidence of appendicitis.No evidence of sigmoid diverticulitis. URINARY BLADDER: Collapsed REPRODUCTIVE: Uterus is again noted to be retroverted and there is an IUD in satisfactory position again noted in the endometrial canal. There are no abnormal adnexal masses nor free fluid in the pelvis. OSSEOUS: No significant osseous lesions. Benign bone island in the left side of the symphysis pubis again noted, unchanged from 2018. There are no fractures. The sacroiliac joints appear unremarkable. IMPRESSION: 1. Bilateral nonobstructive nephrolithiasis. There is a single tiny 1-2 mm punctate calculus in each kidney. No hydronephrosis nor hydroureter nor obvious abnormality in the urinary bladder. 2. Uterus is again noted to be retroverted, similar to prior studies dating back to at least 2018 and there is an IUD again noted in good position in the endometrial canal. 3. There are no abnormal adnexal findings on today's study. Previously present ovarian cysts seen in 2018 have resolved. There are no extraovarian adnexal masses and no free fluid in the pelvis. 4. The previously described cyst in the right hepatic lobe is again noted to have decreased in size from 8.5 cm (2018) down to 4.5 cm diameter which is similar to the more recent study of April 2024. Smaller benign cysts are also noted in the liver. No new obvious focal liver findings on this noninfused study. 5. Previous cholecystectomy again noted. The biliary tree is not dilated. Report called by myself to ER provider 01/04/2025 at 4:36 p.m. Lab Data Lab results reviewed: Yes I reviewed the patient's lab results. Labs: Laboratory Tests Range/Units 01/04/25 15:15 Urine Color (Yellow) Yellow Urine Clarity (Clear) Clear Urine pH (5-8) 5.5 Ur Specific Mcn[place] (1.005-1.025) 1.025 Urine Protein (Neg-Trace) mg/dL Negative Urine Ketones (Negative) mg/dL 15 H Urine Blood (Negative) Negative Urine Nitrite (Negative) Negative Urine Bilirubin (Negative) Negative Urine Urobilinogen (Up to 0.2) mg/dL 0.2 Ur Leukocyte Esterase (Negative) Negative Urine Glucose (Negative) mg/dL Negative Quality:SDOH Health Related Social Needs: No Data to Display PFSH All Active Problems (Updated 01/04/25 @ 16:49 by ARMINDA Alarcon) Urinary frequency (Acute) Swelling (Acute) Asthma (Chronic) Maldon[place] disease (Acute 02/29/16) Pt. denies this Migraine headache without aura (Acute) Paresthesia of hand, bilateral (Acute) Fatigue (Acute) Medical History Hot flashes due to menopause Started estradiol Apr 2024, hot flashes improved and she stopped within a few months and hot flashes did not return Mastodynia, female Right breast Dense breast tissue Migraine headache with aura Sebaceous cyst Mass of right axilla IUD surveillance (05/10/16) Mirena IUD placed Jun 2018 Dysplasia of cervix, low grade (BG 1) Surgical History , Ectopic 2007 R Salpingectomy Cholecystectomy Social History Smoking/Tobacco Use Status: Former Tobacco Use Quit Date: 08/26/08 Second Hand Exposure: No Smoking risk assessment performed?: Yes Alcohol Intake: current Alcohol Intake frequency: holidays/special occasions only Alcohol type: beer and hard liquor Details: occasional Drug use: Never Substance use type: does not use Adopted: No Caregiver/Support person: No Foster care: No Household members: family Housing: house Number of Children: 3 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 Pets and animals: No Sexually active: Yes Current gender identity: female Seatbelt use: always Do you feel safe at home: Yes Do you feel safe in your relationship?: Yes Female Reproductive History Menstrual control method: progestin IUCD (07/03/18) History History 4 Para Hx # Term Pregnancies 3 Multiple births Hx # Pregnancies Ectopic pregnancies AB induced Hx Number of Living Children AB spontaneous PAWSS Have you Been Recently Intoxicated or Drunk Within the Last 30 days?: No Have you Ever Experienced Previous Episodes of Alcohol Withdrawal?: No Have you ever Experienced Withdrawal Seizures?: No Have you ever Experienced Delirium Tremens(DT)s?: No Have you ever undergone Alcohol Rehabilitation Treatment (i.e, inpt ot outpatient treatment programs)?: No Have you ever Experienced Blackouts?: No Have you ever Combined Alcohol with other Downers within the last 90 days?: No Have you ever Combined Alcohol with any other Substance of Abuse during the last 90 days?: No Positive Blood Alcohol level on Presentation? [PCS.BAL]: No Evidence of Increased Autonomic Activity (i.e. HR>120, tremor, sweating, agitation, nausea)?: No Result: 0
--- NOTE | 2025-01-04 15:30 | DI.CT_ITS ---
Exam(s) CT RENAL COLIC WO EXAM: CT RENAL COLIC WO CLINICAL HISTORY: urgency/frequency, no UTI. TECHNIQUE: Imaging Protocol: Axial computed tomography images with coronal and sagittal reformatted images were created and reviewed CONTRAST MATERIAL: Intravenous: none Oral: None COMPARISON: CT CT ABDOMEN PELVIS WO from 05/25/2024 FINDINGS: VISUALIZED LUNG BASES: No nodules nor pleural effusions evident. ABDOMEN: There is no ascites. LIVER: The previously present 8 cm cyst in the right hepatic lobe seen on CT scan of 03/25/2018 is ag ain noted to have decreased in size to 4.5 cm diameter which is similar size to the CT scan of 2023. Two smaller adjacent cysts are unchanged and as is a small subcapsular cyst lower down in the right hepatic lobe measuring 6-7 mm. There are no obvious new intrahepatic findings on this non infu sed study GALLBLADDER/BILIARY: The gallbladder is again noted be surgically absent. CBD is not dilated. PANCREAS: No evidence of pancreatic mass nor dilatation of the pancreatic duct. SPLEEN: Spleen is not enlarged. No obvious intrasplenic lesions. ADRENALS: There are no significant adrenal masses. KIDNEYS:There is a punctate nonobstructive calculus in the right kidney noted measuring 1 mm. A tea lar size punctate nonobstructive calculus is noted in the left kidney. No other focal renal findings and no hydronephrosis nor hydroureter. The urinary bladder is collapsed and difficult to evaluate b ut there are no obvious radiopaque calculi in the urinary bladder and the pelvic ureters are not dila memo. No solid renal masses. No calculi nor hydronephrosis. . ABDOMINAL AORTA: Abdominal aorta is not enlarged. LYMPH NODES: There is no retroperitoneal nor paraaortic adenopathy. ABDOMINAL WALL: No evidence of significant anterior abdominal wall nor inguinal hernia. GI: There is no evidence of bowel obstruction, free air, nor abscess. PELVIS: LYMPH NODES: There is no intrapelvic nor inguinal adenopathy. GI: No evidence of appendicitis.No evidence of sigmoid diverticulitis. URINARY BLADDER: Collapsed REPRODUCTIVE: Uterus is again noted to be retroverted and there is an IUD in satisfactory position ag ain noted in the endometrial canal. There are no abnormal adnexal masses nor free fluid in the pelvi s. OSSEOUS: No significant osseous lesions. Benign bone island in the left side of the symphysis pubis again noted, unchanged from 2018. There are no fractures. The sacroiliac joints appear unremarkable. IMPRESSION: 1. Bilateral nonobstructive nephrolithiasis. There is a single tiny 1-2 mm punctate calculus in each kidney. No hydronephrosis nor hydroureter nor obvious abnormality in the urinary bladder. 2. Uterus is again noted to be retroverted, similar to prior studies dating back to at least 2018 and there is an IUD again noted in good position in the endometrial canal. 3. There are no abnormal adnexal findings on today's study. Previously present ovarian cysts seen in 2018 have resolved. There are no extraovarian adnexal masses and no free fluid in the pelvis. 4. The previously described cyst in the right hepatic lobe is again noted to have decreased in size from 8.5 cm (2018) down to 4.5 cm diameter which is similar to the more recent study of April 4. Smaller benign cysts are also noted in the liver. No new obvious focal liver findings on this no ninfused study. 5. Previous cholecystectomy again noted. The biliary tree is not dilated. Report called by myself to ER provider 01/04/2025 at 4:36 p.m. RADIATION DOSE DELIVERED: 436.98mGy.cm Total DLP DATA REPOSITORY: All CT scans at this facility are submitted to the National Radiology Data Registry (NRDR) Dose Index Registry (DIR) with the [employer] ([employer]). RADIATION OPTIMIZATION: All CT scans at this facility use at least one of these dose optimization te chniques: automated exposure control; mA and/or kV adjustment per patient size (includes targeted exa ms where dose is matched to clinical indication); or iterative reconstruction.
[2025-01-04 15:31] LABS: Bilirubin Negative (Negative); Blood Negative (Negative); Clarity Clear (Clear); Glucose Negative (Negative); Ketones 15 mg/dL (Negative); Leukocyte Esterase Negative (Negative); Nitrite Negative (Negative); Specific Gravity 1.025 (1.005-1.025); Urobilinogen 0.2 mg/dL (Up to 0.2); pH 5.5 (5-8)
[2025-01-04 16:50] VITALS: BP 115/71; PULSE 82; RESP 16; O2SAT 98
== END 2025-01-04 17:06 | disposition home or self-care (01) ==
PROVIDERS: Emergency Provider Physician Assistant; PCP Nurse Practitioner Family
DX: R35.0 Frequency of micturition (principal)
CPT/HCPCS: 99283; 99284; 74176; 81003; 87480; 87510; 87660

== ENCOUNTER 2025-02-17 09:47 | Emergency (ER) | payer MEDICAID, SELFPAY ==
--- NOTE | 2025-02-17 10:16 | ED.GENADUL_ITS ---
Discharge Plan Disposition Patient Disposition: Home Condition: Stable Discharge Details Clinical Impression: Strep pharyngitis Primary Care Provider: PORTER BLAKELY ED Provider: Evan Nuñez Home Meds and New Rx's Prescriptions: New amoxicillin 500 mg capsule 500 mg PO BID 10 Days Qty: 20 0RF Continued budesonide-formoterol [Symbicort] 2 puff inhalation BID PRN estradiol 0.5 mg tablet 0.5 mg PO DAILY Qty: 90 1RF hydroxyzine HCl 25 mg tablet See Rx Instructions PO Q6H PRN PRN (Reason: headaches) Qty: 60 3RF Rx Instructions: 25-50 mg orally every 6 hours, as needed PRN; Mirena 1 EACH intrauterine device 1 ea Intrauterine ONCE Qty: 1 Patient Comments: has had the IUD for about 4 years 08/28/15 vitamin E mixed 400 unit capsule 400 unit PO DAILY Qty: 90 3RF albuterol sulfate 90 mcg/actuation HFA aerosol inhaler 2 puff IH .q4-6H PRN (Reason: shortness of breath or wheezing) Qty: 8.5 12RF Discharge Instructions Instructions: Amoxicillin, Sore Throat, Adult ED Additional Instructions: You were seen in the emergency department for your strep throat with exudate, I sent a prescription for amoxicillin to [facility] in [place]. Please pick this up, use tea with honey to ease throat soreness, take Tylenol and ibuprofen for any fevers that develop, please return to the emergency department for decreased range of motion of the jaw, excessive drooling, neck swelling, difficulty swallowing. Referrals: PORTER BLAKELY, [employer] [Primary Care Provider, Medicine] Discharge Data Discharge Date/Time-TO BE ENTERED AT DEPARTURE: 02/17/25 10:30 HPI General Date/Time Provider Initiated Documentation: 02/17/25 10:12 . HPI Narrative: 49 year-old female presents to ED today by POV/ambulating with a chief complaint of white patches on tonsils, mild sore throat with onset over the past couple days. Quality described as very white patches on throat, no radiation to cough, shortness of breath, fever, dysphagia, vocal changes, drooling, trismus. Severity is described as mild. Palliating factors include nothing specific attempted. Provoking factors include nothing specific. Patient not anticoagulated. Related Data Home Medications ?Medication ?Instructions ?Recorded ?Confirmed levonorgestrel 21 mcg/24 hr (up to 1 ea intrauterine O NCE #1 implant 07/08/14 02/17/25 8 years) 52 mg intrauterine device (Mirena) vitamin E mixed 400 unit capsule 400 unit PO DAILY #90 caps 09/04/22 02/17/25 hydroxyzine HCl 25 mg tablet See Rx Instructions PO Q6 H PRN PRN 10/15/22 02/17/25 headaches #60 tabs budesonide-formoterol 2 puff inhalation BID PRN 02/17/25 estradiol 0.5 mg tablet 0.5 mg PO DAILY #90 tabs 02/17/25 albuterol sulfate 90 mcg/actuation 2 puff inhalation . q4-6H PRN 12/14/24 02/17/25 aerosol inhaler shortness of breath or wheez ing #8.5 grams amoxicillin 500 mg capsule 500 mg PO BID 10 days #20 c aps 02/17/25 Previous Rx's ?Medication ?Instructions ?Recorded vitamin E mixed 400 unit capsule 400 unit PO DAILY #90 caps 09/04/22 hydroxyzine HCl 25 mg tablet See Rx Instructions PO Q6 H PRN PRN 10/15/22 headaches #60 tabs estradiol 0.5 mg tablet 0.5 mg PO DAILY #90 tabs albuterol sulfate 90 mcg/actuation 2 puff inhalation . q4-6H PRN 12/14/24 aerosol inhaler shortness of breath or wheez ing #8.5 grams amoxicillin 500 mg capsule 500 mg PO BID 10 days #20 c aps 02/17/25 Allergies Allergy/AdvReac Type Severity Reaction Status Date / Time adhesive Allergy Intermediate Itching Verified 02/17/25 10:06 oxycodone (From Percocet) AdvReac Mild Nausea Verified 02/17/25 10:06 General Stated Complaint: Sorethroat JUSTIN: 4 Review of Systems All systems reviewed & are unremarkable except as noted in HPI and below Exam Narrative Exam Narrative: GENERAL APPEARANCE: Well-nourished, non-toxic, awake and alert, atraumatic, no acute distress. SKIN: Warm, pink, dry, intact, without rashes/lesions/ulcerations. HEAD: Normocephalic, atraumatic, normal hair distribution for gender/age. EYES: Normal conjunctiva, no exudates on lids/lashes. ENT: Nares patent, no circumoral cyanosis, no facial swelling, exudative pharyngitis on bilateral tonsils, no neck swelling, uvula midline, no trismus, no vocal changes, no drooling NECK: Supple, trachea midline, painless cervical ROM. LUNGS/CHEST: Non-labored respirations, normal A/P diameter, symmetrical e xpansion, no chest wall deformity HEART (CV/PV): No peripheral edema, no JVD. ABDOMEN: Soft, non-distended, no guarding. MSK: Normal ROM, no swelling/deformity to bilateral UEs or LEs, moving all ext remities without weakness, no cyanosis, spine midline without tenderness, normal curvature. NEURO: Mental Status AAOx4 - alert to person, place, time, events No facial droop, no forehead involvement. Motor: No focal weakness - strength 5/5 in bilateral UEs and LEs, proximal and distal, symmetric. Sensory: sensation intact to light touch globally. Gait normal: patient ambulated without ataxia into ED room. PSYCH: euthymic, cooperative, pleasant, appropriate speech Course Lab/Test Results Lab/Test Results: 02/17/25 10:00 Tonsil - Not Specified Group A Streptococcus Culture - Pending POC Strep Test-DIVYA(Rapid) Start: 02/17/25 10:11 Freq: .Rapid Strep Test Status: Active Protocol: Document 02/17/25 10:12 EVELINA (Rec: 02/17/25 10:12 EVELINA [id number]) Strep test-DIVYA(Rapid)-POC POC-Strep test-DIVYA ( Negative Rapid) POC-Strep test-DIVYA (Rapid) Negative Medical Decision Making This dictation utilizes [id number] dictation software and may contain unedited grammatical errors. 49 year-old female presents to ED today by POV/ambulating with a chief complaint of white patches on tonsils, mild sore throat with onset over the past couple days. Quality described as very white patches on throat, no radiation to cough, shortness of breath, fever, dysphagia, vocal changes, drooling, trismus. Hyacinth rity is described as mild. Palliating factors include nothing specific attempted. Provoking factors include nothing specific. Patients' medical history: noncontributory. Family and social history: noncontributory. Pertinent exam findings / vital signs include exudative pharyngitis on bilateral tonsils, benign respiratory status, no neck swelling, uvula midline, no trismus, no vocal changes, no drooling. Differential / pathologies of concern include strep pharyngitis, mononucleosis less likely. Diagnostic studies of: - Treating empirically no rapid strep. Interventions of: - Rx for amoxicillin. ED Course/Assessment/Plan: 49-year-old female presents with an exudative pharyngitis with profound exudate, no other severe syndrome, denies neck swelling, dysphagia, vocal changes, trismus, reasonable to treat empirically with amoxicillin, stressed return criteria for any emergent concerns. Findings not consistent with RPA/[employer]STR[employer]CH[employer]IC, respiratory illness, febrile illness. Disposition of strep pharyngitis. Patient verbalized understanding of the plan and return to ED criteria and engaged in shared decision making. Medical Records Medical records reviewed: Yes I reviewed the patient's medical records. PFSH All Active Problems (Updated 02/17/25 @ 10:17 by ARMINDA Alarcon) Strep pharyngitis (Acute) Swelling (Acute) Asthma (Chronic) [place] disease (Acute 02/29/16) Pt. denies this Migraine headache without aura (Acute) Paresthesia of hand, bilateral (Acute) Fatigue (Acute) Medical History Hot flashes due to menopause Started estradiol Apr 2024, hot flashes improved and she stopped within a few months and hot flashes did not return Mastodynia, female Right breast Dense breast tissue Migraine headache with aura Sebaceous cyst Mass of right axilla IUD surveillance (05/10/16) Mirena IUD placed Jun 2018 Dysplasia of cervix, low grade (BG 1) Surgical History , Ectopic 2007 R Salpingectomy Cholecystectomy Social History Smoking/Tobacco Use Status: Former Tobacco Use Quit Date: 08/26/08 Second Hand Exposure: No Smoking risk assessment performed?: Yes Alcohol Intake: current Alcohol Intake frequency: holidays/special occasions only Alcohol type: beer and hard liquor Details: occasional Drug use: Never Substance use type: does not use Adopted: No Caregiver/Support person: No Foster care: No Household members: family Housing: house Number of Children: 3 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
== END 2025-02-17 10:30 | disposition home or self-care (01) ==
PROVIDERS: Emergency Provider Physician Assistant; PCP Nurse Practitioner Family
DX: J02.0 Streptococcal pharyngitis (principal)
CPT/HCPCS: 87880; 99283; 87081

== ENCOUNTER 2025-03-10 14:24 | Outpatient (CLI) | payer MEDICAID, SELFPAY ==
[2025-03-10 14:57] LABS: TSH (W/Ref FT4) 0.49 uIU/mL (0.36-3.74)
[2025-03-11 19:09] LABS: FSH 106.3 mIU/mL (See Note)
== END 2025-03-10 14:25 | disposition home or self-care (01) ==
LOC: LBO 14:31
PROVIDERS: PCP Nurse Practitioner Family; Visit Provider Obstetrics & Gynecology
DX: Z30.431 Encounter for routine checking of intrauterine contraceptive device (principal); N95.1 Menopausal and female climacteric states
CPT/HCPCS: 36415; 83001; 84443